=== PATIENT | male | born 1950 | race Caucasian/White ===

== ENCOUNTER 2018-10-08 18:08 | Inpatient (IN) ==
[2018-10-08] MEDS ORDERED: Naloxone 0.4 MG/ML INJ IVP PRN (21:58)
[2018-10-08] MEDS ORDERED: 0.9 % Sodium Chloride 1,000 ML IVC SCH (22:00)
[2018-10-08 22:37] LABS: Basophils # 0.1 K/mcL (0.0-0.2); Basophils % 0.4 %; Eosinophils # 0.5 K/mcL (0.0-0.6); Eosinophils % 2.1 %; Hemoglobin 10.5 g/dL (12.9-16.9); Immature Granulocytes % 0.5 % (0-4); Lymphocytes # 2.4 K/mcL (0.6-4.6); Lymphocytes % 9.9 %; Mean Corpuscular HGB Conc 30.9 g/dL (31.6-35.5); Mean Corpuscular Hemoglobin 29.4 pg (28.0-33.3); Mean Corpuscular Volume 95.2 fL (83.0-100.0); Monocytes # 1.4 K/mcL (0.0-1.3); Neutrophils # 19.3 K/mcL (1.6-8.9); Platelet Count 297 K/mcL (140-400); Red Blood Count 3.57 M/mcL (4.19-5.50); Red Cell Distribution Width 13.2 % (11.5-14.5); Segmented Neutrophils % 81.1 %
[2018-10-08 22:44] LABS: INR 1.1; Prothrombin Time 12.3 Seconds (9.4-12.1)
[2018-10-08 22:47] LABS: Activated Partial Thrombo Time 32.9 Seconds (26.0-36.0)
[2018-10-08 22:55] LABS: ABG Base Excess 3 mEq/L (-2 to 3); ABG HCO3 28 mEq/L (21-27); ABG Oxygen Saturation 94 % (95-98); ABG PCO2 46 mmHg (35-45); ABG PO2 73 mmHg (85-104); ABG TCO2 30 mEq/L (20-26)
[2018-10-08 22:59] LABS: Alanine Aminotransferase 9 Units/L (7-52); Albumin 3.4 g/dL (3.5-5.7); Albumin/Globulin Ratio 0.8 (1.1-2.2); Alkaline Phosphatase 111 Units/L (34-104); Aspartate Amino Transferase 11 Units/L (13-39); BUN/Creatinine Ratio 44 (6-26); Bilirubin,Total 0.5 mg/dL (0.3-1.0); Blood Urea Nitrogen 57 mg/dL (8-23); Carbon Dioxide 26 mEq/L (23-29); Chloride 110 mEq/L (98-107); Globulin 4.1 g/dL (2.4-3.5); Glucose 217 mg/dL (70-105); Magnesium 2.3 mg/dL (1.6-2.6); Osmolality,Calculated 324 (280-300); Sodium 146 mEq/L (136-145); Total Protein 7.5 g/dL (6.4-8.9); Troponin I 0.03 ng/mL (< 0.04); eGFR For Non-African Americans 55 (> 60)
[2018-10-08] MEDS: *HR* Heparin 5,000 UNIT/ML VIAL SQ SCH (23:03)
--- NOTE | 2018-10-09 05:54 | Internal Med History&Physical ---
Date of Encounter: 10/09/18 Time of Encounter: 05:43 Internal Medicine - H&P: HPI Chief complaint: AMS History of present illness: Mr. Saucedo is a 68 year old male with a past medical history of diabetes, hypertension, GERD, TIA, coronary artery disease status post [place], PVD who initially presented to [facility] with a chief complaint of weakness. Patient is a jail resident and per nursing report patient was sent to the ED due to weakness and hyperglycemia. Workup suggested UTI with significant leukocytosis of 21 as the underlying etiology. Patient had a blood glucose of 300. No evidence of DKA/HHS. CT of the head was unremarkable. CT scan of the abdomen and pelvis was performed which showed moderate bilateral hydronephrosis and hydroureter with a moderately distended bladder concerning for bladder outlet obstruction. Patient was given fluids and a one-time dose of Zosyn and transferred here. On my assessment patient was lethargic, arousable only to sternal rub. Patient was otherwise afebrile and hemodynamically stable saturating well on room air. Review of labs at [facility] showed initial white count was 21.6 with a hemoglobin/hematocrit of 12.4 and 40.6 respectively. Creatinine of 1.68. Unclear if patient has any underlying CKD. UA was positive for leukocyte esterase, negative nitrites and more than 100 leukocytes per high-powered field. ABG obtained showed a pH of 7.35, PCO2 62, PO2 26 and bicarbonate 34.2. repeat ABG here was normal. Patient is DNR [facility] Past Med Surg Social Fam HX - Social History Smoking Status: Unknown if ever smoked - Additional Family History Additional family history: Noncontributory Internal Medicine - H&P: Meds Ascorbic Acid [Vitamin C with Leana Hips] 1,000 [place] [address]10/09/18 [History] Aspirin [Lo-Dose Aspirin EC] 81 mg PO 199910/09/18 [History] Clopidogrel [Plavix] 75 [place] 82910/09/18 [History] Doxycycline Hyclate 100 mg PO 829,162910/09/18 [History] Duloxetine HCl [Cymbalta] 60 mg PO 82910/09/18 [History] Ferrous Sulfate [Iron] 325 mg PO 162910/09/18 [History] Glimepiride [Amaryl] 2 mg PO 82910/09/18 [History] GuaiFENesin Liq [Robitussin Liq] 200 mg PO Q4H PRN 10/09/18 [History] HYDROcodone/Acet 5/325 mg [[place] 5-325 mg] 1 tab PO Q6H PRN 10/09/18 [History] Insulin ASPART [NovoLOG] 0 - 8 ml SQ TIDAC MDD SLIDING SCALE 10/09/18 [History] Metoprolol [Lopressor] 12.5 mg PO 08,199910/09/18 [History] Multivitamin with Minerals [One-A-Day Maximum Formula] 1 tab PO 0830 10/09/18 [History] Polyethylene Glycol 3350 [MiraLAX] 17 gm PO 0810/09/18 [History] Pregabalin [Lyrica] 150 mg PO 0830,1629,199910/09/18 [History] Sertraline [Zoloft] 50 [place] [address]310/09/18 [History] Tizanidine HCl 2 mg PO Q12H PRN 10/09/18 [History] Trazodone HCl 25 mg PO HS 10/09/18 [History] Zinc Acetate [Galzin] 50 [place] 16310/09/18 [History] cloNIDine HCl [CloNIDine HCl] 0.1 mg PO DAILY PRN 10/09/18 [History] Allergy/AdvReac Type Severity Reaction Status Date / Time hydrochlorothiazide Allergy See Verified 10/09/18 12:04 Comments acetaminophen [From Percocet] AdvReac Unknown Verified 10/09/18 00:41 oxycodone [From Percocet] AdvReac Unknown Verified 10/09/18 00:41 All Systems PM: A 10-system review of systems was performed and is negative for pertinent f indings except as documented above in the HPI. - Constitutional Constitutional: no chills, no fever(s), no night sweats - EENT Eyes: no change in vision, no discharge, no pain, no photophobia Ears: no ear discharge, no ear pain, no tinnitus Nose, mouth and throat: no dysphagia, no nasal discharge, no neck pain, no sore throat - Cardiovascular Cardiovascular ROS IM: no chest pain, no diaphoresis, no dyspnea, no lightheadedness, no palpitations, no syncope - Respiratory Respiratory: no cough, no dyspnea, no wheezing, no excessive phlegm production - Gastrointestinal Gastrointestinal: no abdominal pain, no diarrhea, no hematemesis, no hematochezia, no melena, no nausea, no vomiting - Musculoskeletal Musculoskeletal ROS IM: no numbness, no tingling - Integumentary Integumentary IM: no rash, no unusual bruising - Neurological Neurological ROS: no confusion, no convulsions, no focal weakness, no numbness, no tingling, no tremor(s) - Hematologic/Lymphatic Hematologic/Lymphatic: no easy bruising - Constitutional Vitals: Temp Pulse Resp BP Pulse Ox 98.9 F 80 15 146/75 99 10/09/18 00:25 10/09/18 00:25 10/09/18 00:25 10/09/18 00:25 10/09/18 00:25 Exam: General: Alert and oriented 1 Skin:Normal color, no rash, no lesions. HEENT:EOM, pupils equal, round and reactive. Cardiovascular:Normal S1 & S2, no rubs, murmurs or gallops. No JVD. Pulse regular. Lungs:Normal breath sounds, no wheezes or crackles. Abdomen:Soft, non-tender, no rigidity. Suprapubic tenderness Extremities:No deformity, no edema or tenderness, no joint swelling or clubbing. Neurological:Normal cognition and motor skills. Pulses:Carotid and radial pulses normal +2. Rest of the physical exam is non contributory Internal Med - H&P Results - Labs CBC & Chem 7: 10/09/18 09:38 10/09/18 09:38 Labs: Short CBC 10/08/18 Range/Units 22:20 WBC 23.8 H (4.3-11.1) K/mcL Hgb 10.5 L (12.9-16.9) g/dL Hct 34.0 L (37.5-50.1) % Plt Count 297 (140-400) K/mcL Neutrophils # 19.3 H (1.6-8.9) K/mcL BMP 10/08/18 22:20 Sodium 146 H Potassium 4.0 Chloride 110 H Carbon Dioxide 26 BUN 57 H Creatinine 1.29 Glucose 217 H Calcium 11.0 H Cardiac Enzymes 10/08/18 Range/Units 22:20 Troponin I 0.03 (< 0.04) ng/mL Liver Function 10/08/18 Range/Units 22:20 Total Bilirubin 0.5 (0.3-1.0) mg/dL AST 11 L (13-39) Units/L ALT 9 (7-52) Units/L Alkaline Phosphatase 111 H (34-104) Units/L Albumin 3.4 L (3.5-5.7) g/dL - ABG Interpretation ABG results: 10/08/18 22:51 ABG pH 7.40 ABG pCO2 46 H ABG pO2 73 L ABG HCO3 28 H ABG Total CO2 30 H ABG O2 Saturation 94 L ABG Base Excess 3 - Assessment and Plan (1) Acute encephalopathy Current Visit: Yes Status: Acute Assessment and plan: Patient presents with acute encephalopathy. Patient is a poor historian and and his baseline is unclear as no family members were present during my assessment. Suspect likely secondary to urinary tract infection given his elevated leukocytosis and urine with large leukocyte esterase and numerous WBCs. ABG was obtained which appeared to be normal. Patient does appear to have some degree of bladder outlet obstruction and CT of the abdomen and pelvis demonstrated moderate bilateral hydronephrosis and hydroureter as well as a moderately distended bladder. Fecal impaction was also noted. Patient received fluids and was given one-time dose of Zosyn at [facility] prior to transfer. Continue with antibiotics. (2) Complicated UTI (urinary tract infection) Current Visit: Yes Status: Acute Assessment and plan: Patient presenting with complicated UTI in the setting of what appears to be some degree of bladder outlet obstruction and altered mentation with a significant leukocytosis. Patient did have suprapubic tenderness to palpation on abdominal examination. -Blood and urine cultures were obtained -We will continue with antibiotics with ceftriaxone (3) Bilateral hydronephrosis Current Visit: Yes Status: Acute Assessment and plan: CT of the abdomen and pelvis showed moderate bilateral hydronephrosis and hydroureter with a distended gallbladder suggestive of bladder outlet obstr uction. -Consider urology consult (4) Type 2 diabetes mellitus Current Visit: Yes Status: Acute Assessment and plan: History of type 2 diabetes. Patient was hyperglycemic. We will start patient on fighting scale insulin with blood glucose checks. Qualifiers: Proliferative retinopathy type: unspecified Diabetes mellitus macular edema: macular edema presence unspecified Laterality: unspecified laterality Qualified Code(s): E11.3599 - Type 2 diabetes mellitus with proliferative diabetic retinopathy without macular edema, unspecified eye; Z79.4 - terminal carman (current) use of insulin (5) Coronary artery disease Current Visit: Yes Status: Acute Assessment and plan: Reported history of coronary artery disease status post [place]. Once patient's medications are verified we will continue medical management. Qualifiers: Associated angina: angina presence unspecified Qualified Code(s): I25.10 - Atherosclerotic heart disease of [place] coronary artery without angina pectoris (6) DVT prophylaxis Current Visit: Yes Status: Acute Assessment and plan: Subcutaneous heparin - Time Spent With Patient Total time spent is greater than 50% in coordination of care (as documented) at patient's floor/unit and/or counseling patient:
[2018-10-09] MEDS: cefTRIAXone 1,000 MG in Water for inj. (sterile) 20 ML 10 ML IVPB SCH (06:14)
[2018-10-09] MEDS ORDERED: Dextrose Gel 15 GM/37.5 ML TUBE PO PRN ×2 (06:18)
[2018-10-09] MEDS ORDERED: *HR* Dextrose 50 % in Water (Syg) 50 ML SYRINGE IVP PRN (06:18)
[2018-10-09] MEDS ORDERED: D5% in Water 1,000 ML IVC PRN (06:18)
[2018-10-09 07:02] LABS: Bilirubin,Urine Negative (Negative); Blood,Urine Moderate (Negative); Clarity,Urine Turbid (Clear); Color,Urine Yellow (Yellow); Glucose,Urine (UA) 100 mg/dL (Normal); Ketones,Urine Negative (Negative); Leukocyte Esterase,Urine Large (Negative); Nitrite,Urine Negative (Negative); PH,Urine 5.5 pH Units (5.0-8.0); Protein,Urine 30 mg/dL (Neg-Trace); Specific Gravity,Urine 1.009 (1.010-1.025); Urobilinogen,Urine Normal (Normal)
[2018-10-09 07:04] LABS: Bacteria,Urine Many per hpf (None-Few); Hyaline Casts,Urine None Seen per lpf (None-Few); Squamous Epithelial Cell,Urine Few per lpf (None-Few); WBC,Urine TNTC per hpf (0-3)
[2018-10-09] MEDS: Insulin LISPRO 300 UNITS/3 ML VIAL SQ SCH ×3 (08:28→16:58)
[2018-10-09] MEDS: Insulin DETEMIR 100 UNIT/ML X5UNITS SQ SCH ×2 (08:29→20:36)
[2018-10-09] MEDS: *HR* Heparin 5,000 UNIT/ML VIAL SQ SCH ×2 (08:29→14:22)
[2018-10-09 09:55] LABS: Basophils # 0.1 K/mcL (0.0-0.2); Basophils % 0.8 %; Eosinophils # 0.5 K/mcL (0.0-0.6); Eosinophils % 2.8 %; Hematocrit 36.7 % (37.5-50.1); Hemoglobin 11.2 g/dL (12.9-16.9); Immature Granulocytes % 0.5 % (0-4); Lymphocytes # 1.9 K/mcL (0.6-4.6); Lymphocytes % 11.3 %; Mean Corpuscular HGB Conc 30.5 g/dL (31.6-35.5); Mean Corpuscular Hemoglobin 29.5 pg (28.0-33.3); Mean Corpuscular Volume 96.6 fL (83.0-100.0); Monocytes # 0.8 K/mcL (0.0-1.3); Monocytes % 4.9 %; Neutrophils # 13.6 K/mcL (1.6-8.9); Platelet Count 277 K/mcL (140-400); Red Cell Distribution Width 13.3 % (11.5-14.5); Segmented Neutrophils % 79.7 %
[2018-10-09 11:42] LABS: BUN/Creatinine Ratio 40 (6-26); Blood Urea Nitrogen 51 mg/dL (8-23); Calcium 11.4 mg/dL (8.6-10.3); Carbon Dioxide 18 mEq/L (23-29); Chloride 109 mEq/L (98-107); Glucose 232 mg/dL (70-105); Osmolality,Calculated 319 (280-300); Potassium 3.9 mEq/L (3.5-5.1); Sodium 144 mEq/L (136-145); eGFR For Non-African Americans 56 (> 60)
[2018-10-09 12:32] LABS: Folate > 22.3 ng/mL (3.0-16.0); Vitamin B12 837 pg/mL (250-1100)
--- NOTE | 2018-10-09 12:44 | Urology - Consult Note ---
Date of Encounter: 10/09/18 Time of Encounter: 12:42 - Assessment and Plan (1) Bilateral hydronephrosis Current Visit: Yes Status: Acute Assessment and plan: CT shows overly distended bladder with moderate bilateral hydronephrosis consistent with long-standing high-grade bladder outlet obstruction. Patient with mild acute kidney injury and GFR of 55. Anticipate resolution of hydronephrosis and potentially acute kidney injury with placement of Rick catheter. Nursing staff unable to place Rick despite multiple attempts and use of specialized catheter/daily. Plan: Difficult Rick placed at bedside with 16- Wallisian coude. Leave Rick indwelling. Maximize BPH meds with tamsulosin and finasteride. Outpatient cystoscopy with trial of void in 4 weeks. (2) Acute kidney injury Current Visit: Yes Status: Acute Assessment and plan: Mild decrease in GFR to 55. Suspect this is related to his bladder outlet obstruction with bilateral hydronephrosis. Plan: Monitor renal functions post Rick placement. (3) Urinary retention Current Visit: Yes Status: Acute Assessment and plan: Suspect BPH a source. Rule out malignancy with prostate cancer screening. Ease of catheter placement does not suggest urethral stricture disease. Plan: Maximize BPH meds with finasteride and tamsulosin. My office will arrange for Outpatient cystoscopy with trial of void in 4 weeks. Discharge to home/SNF with indwelling Rick. (4) Constipation Current Visit: Yes Status: Acute Assessment and plan: Likely determining factor to urinary retention. Plan: Address of constipation/fecal impaction noted on CT by primary service. Qualifiers: Constipation type: unspecified constipation type Qualified Code(s): K59.00 - Constipation, unspecified (5) Complicated UTI (urinary tract infection) Current Visit: Yes Status: Acute Assessment and plan: Comment located UTI due to bladder outlet obstruction and bilateral hydronephrosis with urinary stasis. Plan: Indwelling Rick catheter until seen in my office or trauma void in 4 weeks. Culture specific antibiotic therapy as per primary service. (6) Anticoagulation adequate Current Visit: Yes Status: Acute Assessment and plan: Clopidogrel complaints current Rick placement, management and future urologic interventions. Urology CN:BOAZ Consult date: 10/09/18 Requesting physician: Fabrizio Guzman History of present illness: Mr. Saucedo is a 68 year old male with a past medical history of diabetes, hypertension, GERD, TIA, coronary artery disease status post [place], PVD who initially presented to [facility] with a chief complaint of weakness. Patient is a care home resident and per nursing report patient was sent to the ED due to weakness and hyperglycemia. Workup suggested UTI with significant leukocytosis of 21 as the underlying etiology. Patient had a blood glucose of 300. No evidence of DKA/HHS. CT of the head was unremarkable. CT scan of the abdomen and pelvis was performed which showed moderate bilateral hydronephrosis and hydroureter with a moderately distended bladder concerning for bladder outlet obstruction. Patient was given fluids and a one-time dose of Zosyn and transferred here. On my assessment patient was lethargic, arousable only to sternal rub. Patient was otherwise afebrile and hemodynamically stable saturating well on room air. Review of labs at [facility] showed initial white count was 21.6 with a hemoglobin/hematocrit of 12.4 and 40.6 respectively. Creatinine of 1.68. Unclear if patient has any underlying CKD. UA was positive for leukocyte esterase, negative nitrites and more than 100 leukocytes per high-powered field. ABG obtained showed a pH of 7.35, PCO2 62, PO2 26 and bicarbonate 34.2. repeat ABG here was normal. Patient is DNR [facility] We are asked to see patient bilateral [place], urinary retention, renal insufficiency and UTI Past Med Surg Social Fam HX - Past Surgical History Surgical History: non-contributory - Social History Smoking Status: Unknown if ever smoked - Additional Family History Additional family history: Patient not aware Medications and Allergies Ascorbic Acid [Vitamin C with Leana Hips] 1,000 [place] 82910/09/18 [History] Aspirin [Lo-Dose Aspirin EC] 81 mg PO 199910/09/18 [History] Clopidogrel [Plavix] 75 mg PO 82910/09/18 [History] Doxycycline Hyclate 100 mg PO 829,162910/09/18 [History] Duloxetine HCl [Cymbalta] 60 mg PO 82910/09/18 [History] Ferrous Sulfate [Iron] 325 mg PO 162910/09/18 [History] Glimepiride [Amaryl] 2 mg PO 82910/09/18 [History] GuaiFENesin Liq [Robitussin Liq] 200 mg PO Q4H PRN 10/09/18 [History] HYDROcodone/Acet 5/325 mg [[place] 5-325 mg] 1 tab PO Q6H PRN 10/09/18 [History] Insulin ASPART [NovoLOG] 0 - 8 ml SQ TIDAC MDD SLIDING SCALE 10/09/18 [History] Metoprolol [Lopressor] 12.5 mg PO 0830,199910/09/18 [History] Multivitamin with Minerals [One-A-Day Maximum Formula] 1 tab PO 0830 10/09/18 [History] Polyethylene Glycol 3350 [MiraLAX] 17 gm PO 0830 10/09/18 [History] Pregabalin [Lyrica] 150 mg PO 0830,163,199910/09/18 [History] Sertraline [Zoloft] 50 mg PO 162910/09/18 [History] Tizanidine HCl 2 mg PO Q12H PRN 10/09/18 [History] Trazodone HCl 25 mg PO HS 10/09/18 [History] Zinc Acetate [Galzin] 50 mg PO 162910/09/18 [History] cloNIDine HCl [CloNIDine HCl] 0.1 mg PO DAILY PRN 10/09/18 [History] Allergy/AdvReac Type Severity Reaction Status Date / Time hydrochlorothiazide Allergy See Verified 10/09/18 12:04 Comments acetaminophen [From Percocet] AdvReac Unknown Verified 10/09/18 00:41 oxycodone [From Percocet] AdvReac Unknown Verified 10/09/18 00:41 Review of Systems ROS unobtainable: due to mental status Exam Initial Vital Signs Temp Pulse Resp BP Pulse Ox 97.5 F L 84 16 153/80 100 10/08/18 21:15 10/08/18 21:15 10/08/18 21:15 10/08/18 21:15 10/08/18 21:15 - General physical appearance Present: no distress, cachectic - Eyes Present: normal ocular movement. Absent: icteric - ENT Present: normal nares, normal mucosa - Neck Present: trachea midline - Respiratory Present: normal respiratory effort - Abdomen Abdomen: Present: non tender, distended - Genitourinary Penis: Present: edema - Integumentary Present: no growths - Neurologic Present: confused - Musculoskeletal Present: other (Moves external these bilaterally) Urology Results - Labs 10/09/18 09:38 10/09/18 09:38 Abnormal lab results WBC 17.1 K/mcL (4.3-11.1) H 10/09/18 09:38 RBC 3.80 M/mcL (4.19-5.50) L 10/09/18 09:38 Hgb 11.2 g/dL (12.9-16.9) L 10/09/18 09:38 Hct 36.7 % (37.5-50.1) L 10/09/18 09:38 MCHC 30.5 g/dL (31.6-35.5) L 10/09/18 09:38 13.6 K/mcL (1.6-8.9) H 10/09/18 09:38 1.4 K/mcL (0.0-1.3) H 10/08/18 22:20 PT 12.3 Seconds (9.4-12.1) H 10/08/18 22:20 ABG pCO2 46 mmHg (35-45) H 10/08/18 22:51 ABG pO2 73 mmHg (85-104) L 10/08/18 22:51 ABG HCO3 28 mEq/L (21-27) H 10/08/18 22:51 ABG Total CO2 30 mEq/L (20-26) H 10/08/18 22:51 ABG O2 Saturation 94 % (95-98) L 10/08/18 22:51 Sodium 146 mEq/L (136-145) H 10/08/18 22:20 Chloride 109 mEq/L (98-107) H 10/09/18 09:38 Carbon Dioxide 18 mEq/L (23-29) L 10/09/18 09:38 BUN 51 mg/dL (8-23) H 10/09/18 09:38 Est GFR (Non-Af Amer) 56 (> 60) L 10/09/18 09:38 40 (6-26) H 10/09/18 09:38 Glucose 232 mg/dL (70-105) H 10/09/18 09:38 POC Glucose 172 mg/dL (70-99) H 10/09/18 12:08 319 (280-300) H 10/09/18 09:38 Calcium 11.4 mg/dL (8.6-10.3) H 10/09/18 09:38 AST 11 Units/L (13-39) L 10/08/18 22:20 111 Units/L (34-104) H 10/08/18 22:20 3.4 g/dL (3.5-5.7) L 10/08/18 22:20 4.1 g/dL (2.4-3.5) H 10/08/18 22:20 0.8 (1.1-2.2) L 10/08/18 22:20 > 22.3 ng/mL (3.0-16.0) H 10/09/18 09:38 Turbid (Clear) A 10/09/18 06:40 Ur Specific [place] 1.009 (1.010-1.025) L 10/09/18 06:40 30 mg/dL (Neg-Trace) H 10/09/18 06:40 100 mg/dL (Normal) H 10/09/18 06:40 Moderate (Negative) H 10/09/18 06:40 Ur Leukocyte Esterase Large (Negative) H 10/09/18 06:40 3-5 per hpf (0-3) H 10/09/18 06:40 TNTC per hpf (0-3) H 10/09/18 06:40 Many per hpf (None-Few) H 10/09/18 06:40 Ur Culture Indicated? YES (NO) A 10/09/18 06:40 Diabetes panel 10/08/18 10/09/18 Range/Units 22:20 09:38 Sodium 146 H 144 (136-145) mEq/L Potassium 4.0 3.9 (3.5-5.1) mEq/L Chloride 110 H 109 H (98-107) mEq/L Carbon Dioxide 26 18 L (23-29) mEq/L BUN 57 H 51 H (8-23) mg/dL Creatinine 1.29 1.27 (0.70-1.30) mg/dL Glucose 217 H 232 H (70-105) mg/dL Calcium 11.0 H 11.4 H (8.6-10.3) mg/dL AST 11 L (13-39) Units/L ALT 9 (7-52) Units/L Alkaline Phosphatase 111 H (34-104) Units/L Albumin 3.4 L (3.5-5.7) g/dL Thyroid panel 10/09/18 Range/Units 09:38 TSH 1.331 (0.340-5.600) mcIU/mL Calcium panel 10/08/18 10/09/18 Range/Units 22:20 09:38 Calcium 11.0 H 11.4 H (8.6-10.3) mg/dL Phosphorus 3.0 (2.7-4.5) mg/dL Albumin 3.4 L (3.5-5.7) g/dL Pituitary panel 10/08/18 10/09/18 10/09/18 Range/Units 22:20 09:38 09:38 Sodium 146 H 144 (136-145) mEq/L Potassium 4.0 3.9 (3.5-5.1) mEq/L Chloride 110 H 109 H (98-107) mEq/L Carbon Dioxide 26 18 L (23-29) mEq/L BUN 57 H 51 H (8-23) mg/dL Creatinine 1.29 1.27 (0.70-1.30) mg/dL Glucose 217 H 232 H (70-105) mg/dL Calcium 11.0 H 11.4 H (8.6-10.3) mg/dL TSH 1.331 (0.340-5.600) mcIU/mL Adrenal panel 10/08/18 10/09/18 Range/Units 22:20 09:38 Sodium 146 H 144 (136-145) mEq/L Potassium 4.0 3.9 (3.5-5.1) mEq/L Chloride 110 H 109 H (98-107) mEq/L Carbon Dioxide 26 18 L (23-29) mEq/L BUN 57 H 51 H (8-23) mg/dL Creatinine 1.29 1.27 (0.70-1.30) mg/dL Glucose 217 H 232 H (70-105) mg/dL Calcium 11.0 H 11.4 H (8.6-10.3) mg/dL Total Bilirubin 0.5 (0.3-1.0) mg/dL AST 11 L (13-39) Units/L ALT 9 (7-52) Units/L Alkaline Phosphatase 111 H (34-104) Units/L Albumin 3.4 L (3.5-5.7) g/dL All other labs normal. - Imaging CT scan - abdomen: image reviewed CT scan - pelvis: image reviewed (CT images reviewed and interpreted independently.) Procedures:Urology - Catheter Insertion (Urinary) Bladder Scan/Ultrasound used before catheterization: No Estimated amount of urin (mLs): 1,000 Preparation: Povidone-Iodine, Urojet Type of catheter inserted: 2 way, coude tip Catheter Wallisian Size: 16 Results: successfully catheterized-immediate flow Urine Appearance: Sediment Patient tolerated procedure: no complications Complications: none Consult Discharge Plan - Plan Referrals: Cony Cornelius DO [Primary Care Provider] -
--- NOTE | 2018-10-09 13:51 | Internal Med Progress Note ---
<Jared Cagle - Last Filed: 10/09/18 13:59> Hospitalist Progress Note - Encounter Date of Encounter: 10/09/18 Time of Encounter: 08:15 - Subjective Interval History: Patient seen and examined at bedside; reports that he is feeling fine today. He is alert and oriented x 3 on exam. He reports no urine output this morning. Urology consulted for possible bladder outlet obstruction. No further complaints at this time. - Exam Vitals: Temp Pulse Resp BP Pulse Ox 97.4 F L 77 14 193/89 99 10/09/18 11:59 10/09/18 11:59 10/09/18 11:59 10/09/18 11:59 10/09/18 11:59 Exam: General: A&O X3, conversant, no acute distress; thin Head: atraumatic, normocephalic; mucous membranes dry Eye: PERRL, EOMI, conjuntiva pink, sclera anicteric Neck: Supple, trachea midline; No lymphadenopathy Respiratory: CTAB. No accessory muscle use, wheezes, rales, or rhonchi Cardiovascular: RRR, +S1/+S2; no murmurs, rubs, gallops Abdomen: Soft, nontender; no suprapubic tenderness present Extremities: warm, radial pulses palpable and symmetrical; Mild pain in the right hip Neurological: CN II-XII intact Psychiatric: Normal affect, normal mood Skin: Dry, intact - Assessment and Plan (1) Complicated UTI (urinary tract infection) Current Visit: Yes Status: Acute Assessment and Plan: - Initially presented with altered mental status, leukocytosis at 23.8, and urinalysis suggestive of UTI - Urine culture is ordered and is currently pending - CT scan of the abdomen and pelvis demonstrated bilateral hydronephrosis and moderately distended bladder; possible bladder outlet obstruction - Was given 1 dose of Zosyn at [facility]; was started on Rocephin after transferred to [facility] - Patients white count has decreased to 17.1 - Patient denies abdominal or suprapubic pain on physical exam Plan: - Continue Rocephin - Blood and urine cultures are pending; will tailor anti-biotic therapy appropriately - Urology consulted for possible bladder outlet obstruction (2) Bladder outlet obstruction Current Visit: Yes Status: Acute Assessment and Plan: - CT scan of the abdomen and pelvis demonstrated moderate bilateral hydronephrosis and hydroureter and distended bladder suggestive of bladder outlet obstruction - This morning, patient reported no urinary output - Bladder scan was ordered; demonstrated 750 mL of urine present in the bladder - Attempted to place Rick catheter; was unsuccessful - Urology was consulted; difficult Rick was placed at bedside with 16-[place] Citizen coude - Per urology recommendations: Leave Rick indwelling, maximize BPH medications with tamsulosin and finasteride; outpatient cystoscopy with trial of void in 4 weeks (3) Acute encephalopathy Current Visit: Yes Status: Acute Assessment and Plan: - Resolved; Initially presented with altered mental status and weakness - Found to have UTI and DOM[place]A - This morning, patient is alert and oriented x3 - He does not remember the events leading up to hospitalization (4) Type 2 diabetes mellitus Current Visit: Yes Status: Acute Assessment and Plan: - SSI (5) Coronary artery disease Current Visit: Yes Status: Acute Assessment and Plan: - Home ASA and Plavix - Time Spent with Patient Total time spent is greater than 50% in coordination of care (as documented) at patient's floor/unit and/or counseling patient: Internal Medicine: Result - Labs CBC & Chem 7: 10/09/18 09:38 10/09/18 09:38 Labs: Short CBC 10/08/18 10/09/18 Range/Units 22:20 09:38 WBC 23.8 H 17.1 H (4.3-11.1) K/mcL Hgb 10.5 L 11.2 L (12.9-16.9) g/dL Hct 34.0 L 36.7 L (37.5-50.1) % Plt Count 297 277 (140-400) K/mcL Neutrophils # 19.3 H 13.6 H (1.6-8.9) K/mcL BMP 10/08/18 10/09/18 22:20 09:38 Sodium 146 H 144 Potassium 4.0 3.9 Chloride 110 H 109 H Carbon Dioxide 26 18 L BUN 57 H 51 H Creatinine 1.29 1.27 Glucose 217 H 232 H Calcium 11.0 H 11.4 H Cardiac Enzymes 10/08/18 Range/Units 22:20 Troponin I 0.03 (< 0.04) ng/mL Liver Function 10/08/18 Range/Units 22:20 Total Bilirubin 0.5 (0.3-1.0) mg/dL AST 11 L (13-39) Units/L ALT 9 (7-52) Units/L Alkaline Phosphatase 111 H (34-104) Units/L Albumin 3.4 L (3.5-5.7) g/dL Urine 10/09/18 Range/Units 06:40 Urine Color Yellow (Yellow) Urine Clarity Turbid A (Clear) Urine pH 5.5 (5.0-8.0) pH Units Ur Specific [place] 1.009 L (1.010-1.025) Urine Protein 30 H (Neg-Trace) mg/dL Urine Glucose (UA) 100 H (Normal) mg/dL - ABG Interpretation ABG results: ABG ABG pH 7.40 pH Units (7.32-7.45) 10/08/18 22:51 ABG pCO2 46 mmHg (35-45) H 10/08/18 22:51 ABG pO2 73 mmHg (85-104) L 10/08/18 22:51 ABG O2 Saturation 94 % (95-98) L 10/08/18 22:51 PT/INR, D-dimer PT 12.3 Seconds (9.4-12.1) H 10/08/18 22:20 Consult Discharge Plan - Plan Referrals: Cony Cornelius DO [Primary Care Provider] - <Betzaida Myers - Last Filed: 10/09/18 15:26> Hospitalist Progress Note - Encounter Date of Encounter: 10/09/18 - Exam Vitals: Temp Pulse Resp BP Pulse Ox 97.4 F L 77 14 165/68 99 10/09/18 11:59 10/09/18 11:59 10/09/18 11:59 10/09/18 13:30 10/09/18 11:59 - Assessment and Plan (1) Acute encephalopathy Current Visit: Yes Status: Acute (2) Complicated UTI (urinary tract infection) Current Visit: Yes Status: Acute (3) Bilateral hydronephrosis Current Visit: Yes Status: Acute (4) DVT prophylaxis Current Visit: Yes Status: Acute (5) Type 2 diabetes mellitus Current Visit: Yes Status: Acute (6) Coronary artery disease Current Visit: Yes Status: Acute - Time Spent with Patient Total time spent is greater than 50% in coordination of care (as documented) at patient's floor/unit and/or counseling patient: Internal Medicine: Result - Labs CBC & Chem 7: 10/09/18 09:38 10/09/18 09:38 Labs: Short CBC 10/08/18 10/09/18 Range/Units 22:20 09:38 WBC 23.8 H 17.1 H (4.3-11.1) K/mcL Hgb 10.5 L 11.2 L (12.9-16.9) g/dL Hct 34.0 L 36.7 L (37.5-50.1) % Plt Count 297 277 (140-400) K/mcL Neutrophils # 19.3 H 13.6 H (1.6-8.9) K/mcL BMP 10/08/18 10/09/18 22:20 09:38 Sodium 146 H 144 Potassium 4.0 3.9 Chloride 110 H 109 H Carbon Dioxide 26 18 L BUN 57 H 51 H Creatinine 1.29 1.27 Glucose 217 H 232 H Calcium 11.0 H 11.4 H Cardiac Enzymes 10/08/18 Range/Units 22:20 Troponin I 0.03 (< 0.04) ng/mL Liver Function 10/08/18 Range/Units 22:20 Total Bilirubin 0.5 (0.3-1.0) mg/dL AST 11 L (13-39) Units/L ALT 9 (7-52) Units/L Alkaline Phosphatase 111 H (34-104) Units/L Albumin 3.4 L (3.5-5.7) g/dL Urine 10/09/18 Range/Units 06:40 Urine Color Yellow (Yellow) Urine Clarity Turbid A (Clear) Urine pH 5.5 (5.0-8.0) pH Units Ur Specific [place] 1.009 L (1.010-1.025) Urine Protein 30 H (Neg-Trace) mg/dL Urine Glucose (UA) 100 H (Normal) mg/dL - ABG Interpretation ABG results: ABG ABG pH 7.40 pH Units (7.32-7.45) 10/08/18 22:51 ABG pCO2 46 mmHg (35-45) H 10/08/18 22:51 ABG pO2 73 mmHg (85-104) L 10/08/18 22:51 ABG O2 Saturation 94 % (95-98) L 10/08/18 22:51 PT/INR, D-dimer PT 12.3 Seconds (9.4-12.1) H 10/08/18 22:20 - Attending Attestation I examined this patient and my medical decision-making was reviewed with the Resident Physician. I agree with the documented findings, disposition and treatment plan as described except to the extent set forth below.
[2018-10-09] MEDS: Finasteride 5 MG TABLET PO SCH (14:21)
[2018-10-09] MEDS: *HR* HYDROcodone/Acet 5/325 mg TABLET PO PRN ×2 (14:22→20:41)
[2018-10-09 14:48] LABS: Amphetamine Screen,Urine Negative ng/mL (Cutoff=1000); Barbiturate Screen,Urine Negative ng/mL (Cutoff=200); Benzodiazepines Screen,Urine Negative ng/mL (Cutoff=200); Cannabinoid Screen,Urine Negative ng/mL (Cutoff = 50); Cocaine Screen,Urine Negative ng/mL (Cutoff= 300); Opiate Screen,Urine Negative ng/mL (Cutoff=300); Phencyclidine Screen,Urine Negative ng/mL (Cutoff=25)
[2018-10-09] MEDS: *HR* HYDROcodone/Acet 7.5/325 mg TABLET PO PRN (18:06)
[2018-10-09] MEDS: Aspirin Enteric Coated 81 MG Tablet PO SCH (20:36)
[2018-10-10] MEDS: *HR* Heparin 5,000 UNIT/ML VIAL SQ SCH ×4 (00:18→23:27)
[2018-10-10] MEDS: cefTRIAXone 1,000 MG in Water for inj. (sterile) 20 ML 10 ML IVPB SCH (05:00)
[2018-10-10] MEDS: *HR* HYDROcodone/Acet 7.5/325 mg TABLET PO PRN ×2 (05:00→23:27)
[2018-10-10 06:08] LABS: Basophils # 0.1 K/mcL (0.0-0.2); Basophils % 0.5 %; Eosinophils # 0.4 K/mcL (0.0-0.6); Eosinophils % 3.3 %; Hematocrit 33.7 % (37.5-50.1); Hemoglobin 10.5 g/dL (12.9-16.9); Immature Granulocytes % 0.5 % (0-4); Lymphocytes # 1.7 K/mcL (0.6-4.6); Lymphocytes % 12.6 %; Mean Corpuscular HGB Conc 31.2 g/dL (31.6-35.5); Mean Corpuscular Hemoglobin 29.5 pg (28.0-33.3); Mean Corpuscular Volume 94.7 fL (83.0-100.0); Monocytes # 0.8 K/mcL (0.0-1.3); Monocytes % 6.2 %; Neutrophils # 10.2 K/mcL (1.6-8.9); Platelet Count 233 K/mcL (140-400); Red Blood Count 3.56 M/mcL (4.19-5.50); Red Cell Distribution Width 13.1 % (11.5-14.5); Segmented Neutrophils % 76.9 %
[2018-10-10 06:27] LABS: BUN/Creatinine Ratio 39 (6-26); Blood Urea Nitrogen 39 mg/dL (8-23); Calcium 10.7 mg/dL (8.6-10.3); Carbon Dioxide 29 mEq/L (23-29); Chloride 110 mEq/L (98-107); Glucose 65 mg/dL (70-105); Osmolality,Calculated 308 (280-300); Potassium 3.3 mEq/L (3.5-5.1); Sodium 145 mEq/L (136-145); eGFR For Non-African Americans > 60 (> 60)
[2018-10-10] MEDS: Insulin LISPRO 300 UNITS/3 ML VIAL SQ SCH ×3 (07:50→17:24)
[2018-10-10] MEDS ORDERED: GuaiFENesin Liq 200 MG/10 ML UDC PO PRN (07:56)
[2018-10-10] MEDS ORDERED: cloNIDine HCl 0.1 MG TABLET PO PRN (07:56)
[2018-10-10] MEDS: Ascorbic Acid 500 MG TABLET PO SCH (09:53)
[2018-10-10] MEDS: Finasteride 5 MG TABLET PO SCH (09:53)
--- NOTE | 2018-10-10 12:51 | Discharge Summary ---
<Jared Cagle - Last Filed: 10/10/18 13:11> - NOTES TO OUTPATIENT PROVIDER Notes to Outpatient Provider: Patient will require outpatient follow-up with urology for an outpatient cystoscopy with trial of void in 4 weeks. Orders not resulted at time of discharge: Pending orders 10/08/18 22:19 Culture,Blood [BC] Stat 10/09/18 06:40 Culture,Urine [RM] Stat Date of Encounter: 10/10/18 Time of Encounter: 12:46 - Discharge Diagnosis (1) Complicated UTI (urinary tract infection) Priority: Primary Status: Acute (2) Bladder outlet obstruction Priority: Secondary Status: Acute (3) Acute encephalopathy Priority: Secondary Status: Acute (4) Type 2 diabetes mellitus Priority: Secondary Status: Acute Qualifiers: Proliferative retinopathy type: unspecified Diabetes mellitus macular edema: macular edema presence unspecified Laterality: unspecified laterality Qualified Code(s): 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 Saucedo is a 68 year old male with a PMH of diabetes, HTN, GERD, previous TIA, CAD status post [place], and peripheral vascular disease who presented to [facility] ED with the chief complaint of weakness. Initial workup at [facility] demonstrated leukocytosis at 21 and urinalysis demonstrated a UTI. He also had an elevated blood glucose of 300. He had no evidence of DKA or HHS. CT scan of the head was unremarkable. CT scan of the abdomen and pelvis demonstrated moderate bilateral hydronephrosis and hydroureter, with a moderately distended bladder. There was a concern for possible bladder outlet obstruction. At [facility], he was given a one-time dose of Zosyn and then was transferred to [facility] for further management. He was started on IV Rocephin for his UTI. On his first day in the hospital, patients mental status had improved. He was alert and oriented 3 on exam, but reported that he had not urinated that morning. A bladder scan was performed, which demonstrated 750 mL of urine in his bladder. A Buck catheter placement was attempted multiple times; after multiple unsuccessful attempts, urology was consulted. Difficult Buck was placed at bedside with 16-[place] coude. Urology further recommended maximizing BPH meds with tamsulosin and finasteride. Patient was seen and examined on date of discharge. He states that he is feeling well. He is alert and oriented 3, and has no complaints today. Buck catheter is in place. Per the recommendations of urology, patient is to follow- up in the outpatient setting with urology for outpatient cystoscopy with trial of void. He is on day 2 of Rocephin on date of discharge; will send him on 5 more days of Omnicef. He denies having suprapubic or abdominal pain. Also denies fever, chills, nausea, vomiting, confusion, dizziness, headache, lightheadedness, or visual disturbances. His white blood cell count has decreased from 23.8 to 13.2. Renal function has improved, and creatinine today is 0.99. He will be discharged back to his nursing facility. - Time Spent with Patient Total time spent providing and/or coordinating discharge services: - Discharge Medications Prescriptions: New Tamsulosin [Flomax] 0.4 mg PO DAILY #30 capsule Finasteride [Proscar] 5 mg PO DAILY #30 tablet Cefdinir [Omnicef] 300 mg PO BID #16 capsule Continued GuaiFENesin Liq [Robitussin Liq] 200 mg PO Q4H PRN PRN Reason: Cough HYDROcodone/Acet 5/325 mg [[place] 5-325 mg] 1 tab PO Q6H PRN PRN Reason: Pain cloNIDine HCl [CloNIDine HCl] 0.1 mg PO DAILY PRN PRN Reason: BP >140/90 Insulin ASPART [NovoLOG] 0 - 8 ml SQ TIDAC MDD SLIDING SCALE Pregabalin [Lyrica] 150 mg PO 0830,1630,2000 Metoprolol [Lopressor] 12.5 mg PO 0830,2000 Doxycycline Hyclate 100 mg PO 0830,1630 Sertraline [Zoloft] 50 mg PO 1630 Zinc Acetate [Galzin] 50 mg PO 1630 Trazodone HCl 25 mg PO HS Ascorbic Acid [Vitamin C with Leana Hips] 1,000 mg PO 0830 Polyethylene Glycol 3350 [MiraLAX] 17 gm PO 0830 Multivitamin with Minerals [One-A-Day Maximum Formula] 1 tab PO 0830 Glimepiride [Amaryl] 2 mg PO 0830 Ferrous Sulfate [Iron] 325 mg PO 1630 Duloxetine HCl [Cymbalta] 60 mg PO 0830 Clopidogrel [Plavix] 75 mg PO 0830 Aspirin [Lo-Dose Aspirin EC] 81 mg PO 1999 Tizanidine HCl 2 mg PO Q12H PRN PRN Reason: Muscle Spasm Home Medications: Ascorbic Acid [Vitamin C with Leana Hips] 1,000 mg PO 0830 10/09/18 [History] Aspirin [Lo-Dose Aspirin EC] 81 mg PO 199910/09/18 [History] Clopidogrel [Plavix] 75 mg PO 0830 10/09/18 [History] Doxycycline Hyclate 100 mg PO 0830,16310/09/18 [History] Duloxetine HCl [Cymbalta] 60 mg PO 0830 10/09/18 [History] Ferrous Sulfate [Iron] 325 mg PO 162910/09/18 [History] Glimepiride [Amaryl] 2 mg PO 0830 10/09/18 [History] GuaiFENesin Liq [Robitussin Liq] 200 mg PO Q4H PRN 10/09/18 [History] HYDROcodone/Acet 5/325 mg [[place] 5-325 mg] 1 tab PO Q6H PRN 10/09/18 [History] Insulin ASPART [NovoLOG] 0 - 8 ml SQ TIDAC MDD SLIDING SCALE 10/09/18 [History] Metoprolol [Lopressor] 12.5 mg PO 0830,199910/09/18 [History] Multivitamin with Minerals [One-A-Day Maximum Formula] 1 tab PO 0830 10/09/18 [History] Polyethylene Glycol 3350 [MiraLAX] 17 gm PO 0830 10/09/18 [History] Pregabalin [Lyrica] 150 mg PO 0830,1630,199910/09/18 [History] Sertraline [Zoloft] 50 mg PO 162910/09/18 [History] Tizanidine HCl 2 mg PO Q12H PRN 10/09/18 [History] Trazodone HCl 25 mg PO HS 10/09/18 [History] Zinc Acetate [Galzin] 50 mg PO 162910/09/18 [History] cloNIDine HCl [CloNIDine HCl] 0.1 mg PO DAILY PRN 10/09/18 [History] Cefdinir [Omnicef] 300 mg PO BID #16 capsule 10/10/18 [Rx] Finasteride [Proscar] 5 mg PO DAILY #30 tablet 10/10/18 [Rx] Tamsulosin [Flomax] 0.4 mg PO DAILY #30 capsule 10/10/18 [Rx] Allergies/Adverse Reactions: Allergy/AdvReac Type Severity Reaction Status Date / Time hydrochlorothiazide Allergy See Verified 10/09/18 12:04 Comments acetaminophen [From Percocet] AdvReac Unknown Verified 10/09/18 00:41 oxycodone [From Percocet] AdvReac Unknown Verified 10/09/18 00:41 Date of admission: 10/08/18 22:37 Primary care physician: Cony Cornelius DO Consults: 10/09/18 11:56 Consult to Urology [CONS] Routine Consulting Provider: Urology Gema Reason for Consult: buck placement Time Notified: 11:57 Call Completed: Yes Consult to Wound Care [CONS] Routine Reason for Consult: wound on leg/feet Time Notified: 11:57 Call Completed: Yes 10/09/18 20:58 Consult to Manufacturing Engineering Professor [CONS] Routine Reason for SW Consult: Discharge planning. Family wants patient to go to a different ECF/rehab. Discharging clinician: Jared Cagle Anticipated date of discharge: 10/10/18 - Constitutional Vitals: Temp Pulse Resp BP Pulse Ox 97.6 F 83 16 154/69 97 10/10/18 10:57 10/10/18 10:57 10/10/18 10:57 10/10/18 10:57 10/10/18 10:57 Exam: General: A&O X3, conversant, no acute distress; thin Head: atraumatic, normocephalic; mucous membranes dry Eye: PERRL, EOMI, conjuntiva pink, sclera anicteric Neck: Supple, trachea midline; No lymphadenopathy Respiratory: CTAB. No accessory muscle use, wheezes, rales, or rhonchi Cardiovascular: RRR, +S1/+S2; no murmurs, rubs, gallops Abdomen: Soft, nontender; no suprapubic tenderness present Extremities: warm, radial pulses palpable and symmetrical; Mild pain in the right hip Neurological: CN II-XII intact Psychiatric: Normal affect, normal mood Skin: Dry, intact - Patient Status Disposition: Transfer SNF Condition: Fair Overall status at discharge: patient is progressing back to baseline - Discharge Instructions Follow Up With: Cony Cornelius DO [Primary Care Provider] - - Diet and Activity Activity: increase activity as tolerated Diet: low salt diet <Betzaida Myers - Last Filed: 10/10/18 16:26> Orders not resulted at time of discharge: Pending orders 10/08/18 22:19 Culture,Blood [BC] Stat 10/09/18 06:40 Culture,Urine [RM] Stat Date of Encounter: 10/10/18 - Discharge Diagnosis (1) Acute encephalopathy Status: Acute (2) Complicated UTI (urinary tract infection) Status: Acute (3) Bilateral hydronephrosis Status: Acute (4) DVT prophylaxis Status: Acute (5) Type 2 diabetes mellitus Status: Acute Qualifiers: Proliferative retinopathy type: unspecified Diabetes mellitus macular edema: macular edema presence unspecified Laterality: unspecified laterality Qualified Code(s): E11.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 Saucedo is a 68 year old male - Time Spent with Patient Total time spent providing and/or coordinating discharge services: Date of admission: 10/08/18 22:37 Primary care physician: Cony Cornelius DO Consults: 10/09/18 11:56 Consult to Urology [CONS] Routine Consulting Provider: Urology Gema Reason for Consult: buck placement Time Notified: 11:57 Call Completed: Yes Consult to Wound Care [CONS] Routine Reason for Consult: wound on leg/feet Time Notified: 11:57 Call Completed: Yes 10/09/18 20:58 Consult to Manufacturing Engineering Professor [CONS] Routine Reason for SW Consult: Discharge planning. Family wants patient to go to a different ECF/rehab. - Constitutional Vitals: Temp Pulse Resp BP Pulse Ox 98.4 F 91 18 157/72 96 10/10/18 15:50 10/10/18 15:50 10/10/18 15:50 10/10/18 15:50 10/10/18 15:50 - Attending Attestation I examined this patient and my medical decision-making was reviewed with the Resident Physician. I agree with the documented findings, disposition and t reatment plan as described except to the extent set forth below.
--- NOTE | 2018-10-10 13:15 | Physician Discharge Referral ---
ExtendedCare Referral Info Provider in Charge after Transfer: PCP - Diagnosis (1) Complicated UTI (urinary tract infection) Priority: Primary Status: Acute (2) Bladder outlet obstruction Priority: Secondary Status: Acute (3) Acute encephalopathy Priority: Secondary Status: Acute (4) Type 2 diabetes mellitus Priority: Secondary Status: Acute (5) Coronary artery disease Priority: Secondary Status: Acute - Transfer Medications Prescriptions: Tamsulosin [Flomax] 0.4 mg PO DAILY #30 capsule Cefdinir [Omnicef] 300 mg PO BID #16 capsule Finasteride [Proscar] 5 mg PO DAILY #30 tablet Home Medications: Ascorbic Acid [Vitamin C with Leana Hips] 1,000 [place] [address]10/09/18 [History] Aspirin [Lo-Dose Aspirin EC] 81 mg PO 199910/09/18 [History] Clopidogrel [Plavix] [place] 82910/09/18 [History] Doxycycline Hyclate 100 mg PO 0830,162910/09/18 [History] Duloxetine HCl [Cymbalta] 60 mg PO 82910/09/18 [History] Ferrous Sulfate [Iron] 325 mg PO 162910/09/18 [History] Glimepiride [Amaryl] 2 mg PO 82910/09/18 [History] GuaiFENesin Liq [Robitussin Liq] 200 mg PO Q4H PRN 10/09/18 [History] HYDROcodone/Acet 5/325 mg [[place] 5-325 mg] 1 tab PO Q6H PRN 10/09/18 [History] Insulin ASPART [NovoLOG] 0 - 8 ml SQ TIDAC MDD SLIDING SCALE 10/09/18 [History] Metoprolol [Lopressor] 12.5 mg PO 08,199910/09/18 [History] Multivitamin with Minerals [One-A-Day Maximum Formula] 1 [place] [address]/09/18 [History] Polyethylene Glycol 3350 [MiraLAX] 17 [place] 82910/09/18 [History] Pregabalin [Lyrica] 150 mg PO 0830,163,199910/09/18 [History] Sertraline [Zoloft] 50 mg PO 162910/09/18 [History] Tizanidine HCl 2 mg PO Q12H PRN 10/09/18 [History] Trazodone HCl 25 mg PO HS 10/09/18 [History] Zinc Acetate [Galzin] 50 mg PO 1630 10/09/18 [History] cloNIDine HCl [CloNIDine HCl] 0.1 mg PO DAILY PRN 10/09/18 [History] Cefdinir [Omnicef] 300 mg PO BID #16 capsule 10/10/18 [Rx] Finasteride [Proscar] 5 mg PO DAILY #30 tablet 10/10/18 [Rx] Tamsulosin [Flomax] 0.4 mg PO DAILY #30 capsule 10/10/18 [Rx] Allergies/Adverse Reactions: Allergy/AdvReac Type Severity Reaction Status Date / Time hydrochlorothiazide Allergy See Verified 10/09/18 12:04 Comments acetaminophen [From Percocet] AdvReac Unknown Verified 10/09/18 00:41 oxycodone [From Percocet] AdvReac Unknown Verified 10/09/18 00:41 - Respiratory Orders Smoking Cessation: Smoking cessation has been advised. For more information, call the [place] Tobacco Quit Line at 1-378-GOSR-NOW. - Advance Directives Code Status: Full Code - Rehabiliation Orders Rehab Potential: Good - Diet Orders Cardiac CERTIFICATION: I certify that the transfer of the above named patient to an Extended Care Facility is necessary for the continuing treatment of the diagnosis listed. The above information is true and accurate reflection of patient's current condition. Confidential - Redisclosure prohibited without a patient's written consent.
[2018-10-10] MEDS ORDERED: ZINC ACETATE 50 MG PO SCH (16:30)
[2018-10-10] MEDS: *HR* HYDROcodone/Acet 5/325 mg TABLET PO PRN (17:24)
[2018-10-10] MEDS: Aspirin Enteric Coated 81 MG Tablet PO SCH (20:31)
[2018-10-10] MEDS: Insulin DETEMIR 100 UNIT/ML X5UNITS SQ SCH (20:34)
[2018-10-11 03:01] LABS: Basophils # 0.1 K/mcL (0.0-0.2); Basophils % 0.4 %; Eosinophils # 0.5 K/mcL (0.0-0.6); Eosinophils % 3.3 %; Hematocrit 33.4 % (37.5-50.1); Hemoglobin 10.4 g/dL (12.9-16.9); Immature Granulocytes % 0.4 % (0-4); Lymphocytes # 1.9 K/mcL (0.6-4.6); Mean Corpuscular HGB Conc 31.1 g/dL (31.6-35.5); Mean Corpuscular Hemoglobin 29.4 pg (28.0-33.3); Mean Corpuscular Volume 94.4 fL (83.0-100.0); Mean Platelet Volume 12.1 fL (9.4-12.4); Monocytes # 0.9 K/mcL (0.0-1.3); Monocytes % 6.3 %; Neutrophils # 11.1 K/mcL (1.6-8.9); Platelet Count 249 K/mcL (140-400); Red Blood Count 3.54 M/mcL (4.19-5.50); Segmented Neutrophils % 76.6 %
[2018-10-11 03:18] LABS: BUN/Creatinine Ratio 32 (6-26); Blood Urea Nitrogen 29 mg/dL (8-23); Calcium 10.4 mg/dL (8.6-10.3); Carbon Dioxide 29 mEq/L (23-29); Chloride 108 mEq/L (98-107); Glucose 158 mg/dL (70-105); Osmolality,Calculated 303 (280-300); Potassium 3.8 mEq/L (3.5-5.1); Sodium 142 mEq/L (136-145); eGFR For Non-African Americans > 60 (> 60)
[2018-10-11] MEDS: cefTRIAXone 1,000 MG in Water for inj. (sterile) 20 ML 10 ML IVPB SCH (07:22)
[2018-10-11] MEDS: Insulin LISPRO 300 UNITS/3 ML VIAL SQ SCH ×3 (08:21→17:58)
--- NOTE | 2018-10-11 08:50 | Internal Med Progress Note ---
<Jared Cagle - Last Filed: 10/11/18 13:27> Hospitalist Progress Note - Encounter Date of Encounter: 10/11/18 Time of Encounter: 08:15 - Subjective Interval History: Patient was seen and examined at bedside this morning. Appears somewhat drowsy, but overall states that he is feeling fine. Denies nausea, vomiting, fever, chills, or suprapubic pain. Patients preliminary urine culture has grown gram- positive cocci, greater than 100,000 CFUs per milliliter. Blood cultures are still pending. White count today has slightly increased from 13.2-14.4. Once final report is back, we will tailor antibiotic therapy appropriately. Patient's daughter does not want him to return to his previous snf facility, she believes that the care he was receiving there was not adequate. Although we have a licensed social worker online facilitator, the SNF licensed social worker is not available, and will not be available until Friday. - Exam Vitals: Temp Pulse Resp BP Pulse Ox 97.4 F L 84 20 173/73 97 10/11/18 07:49 10/11/18 07:49 10/11/18 07:49 10/11/18 07:49 10/11/18 07:49 Exam: General: A&O X3, conversant, no acute distress; thin Head: atraumatic, normocephalic; mucous membranes dry Eye: PERRL, EOMI, conjuntiva pink, sclera anicteric Neck: Supple, trachea midline; No lymphadenopathy Respiratory: CTAB. No accessory muscle use, wheezes, rales, or rhonchi Cardiovascular: RRR, +S1/+S2; no murmurs, rubs, gallops Abdomen: Soft, nontender; no suprapubic tenderness present Extremities: warm, radial pulses palpable and symmetrical; Mild pain in the rig ht hip Neurological: CN II-XII intact Psychiatric: Normal affect, normal mood Skin: Dry, intact - Assessment and Plan (1) Complicated UTI (urinary tract infection) Current Visit: Yes Status: Acute Assessment and Plan: - Initially presented with altered mental status, leukocytosis at 23.8, and urinalysis suggestive of UTI - Urine culture is ordered and is currently pending - CT scan of the abdomen and pelvis demonstrated bilateral hydronephrosis and moderately distended bladder; possible bladder outlet obstruction - Was given 1 dose of Zosyn at [facility]; was started on Rocephin after transferred to [facility] - Patients white count has decreased to 17.1 - Patient denies abdominal or suprapubic pain on physical exam - Preliminary urine culture was positive for gram-positive cocci Plan: - Continue Rocephin; once final culture comes back, will tailor antibiotic therapy accordingly - Blood and urine cultures are pending; will tailor anti-biotic therapy accordingly (2) Bladder outlet obstruction Current Visit: Yes Status: Acute Assessment and Plan: - CT scan of the abdomen and pelvis demonstrated moderate bilateral hydronephrosis and hydroureter and distended bladder suggestive of bladder o utlet obstruction - This morning, patient reported no urinary output - Bladder scan was ordered; demonstrated 750 mL of urine present in the bladder - Attempted to place Rick catheter; was unsuccessful - Urology was consulted; difficult Rick was placed at bedside with 16-Danish coude - Per urology recommendations: Leave Rick indwelling, maximize BPH medications with tamsulosin and finasteride; outpatient cystoscopy with trial of void in 4 weeks (3) Acute encephalopathy Current Visit: Yes Status: Acute Assessment and Plan: - Resolved; Initially presented with altered mental status and weakness - Found to have UTI and DOMINGA - This morning, patient is alert and oriented x3 - He does not remember the events leading up to hospitalization (4) Type 2 diabetes mellitus Current Visit: Yes Status: Acute Assessment and Plan: - SSI (5) Coronary artery disease Current Visit: Yes Status: Acute Assessment and Plan: - Home ASA and Plavix - Time Spent with Patient Total time spent is greater than 50% in coordination of care (as documented) at patient's floor/unit and/or counseling patient: Internal Medicine: Result - Labs CBC & Chem 7: 10/11/18 02:27 10/11/18 02:27 Labs: Short CBC 10/11/18 Range/Units 02:27 WBC 14.4 H (4.3-11.1) K/mcL Hgb 10.4 L (12.9-16.9) g/dL Hct 33.4 L (37.5-50.1) % Plt Count 249 (140-400) K/mcL Neutrophils # 11.1 H (1.6-8.9) K/mcL BMP 10/11/18 02:27 Sodium 142 Potassium 3.8 Chloride 108 H Carbon Dioxide 29 BUN 29 H Creatinine 0.92 Glucose 158 H Calcium 10.4 H - ABG Interpretation ABG results: ABG ABG pH 7.40 pH Units (7.32-7.45) 10/08/18 22:51 ABG pCO2 46 mmHg (35-45) H 10/08/18 22:51 ABG pO2 73 mmHg (85-104) L 10/08/18 22:51 ABG O2 Saturation 94 % (95-98) L 10/08/18 22:51 PT/INR, D-dimer PT 12.3 Seconds (9.4-12.1) H 10/08/18 22:20 Consult Discharge Plan - Plan Referrals: Cony Cornelius DO [Primary Care Provider] - Prescriptions: Tamsulosin [Flomax] 0.4 mg PO DAILY #30 capsule Cefdinir [Omnicef] 300 mg PO BID #16 capsule Finasteride [Proscar] 5 mg PO DAILY #30 tablet <Betzaida Myers - Last Filed: 10/11/18 15:19> Hospitalist Progress Note - Encounter Date of Encounter: 10/11/18 - Exam Vitals: Temp Pulse Resp BP Pulse Ox 97.6 F 73 20 153/65 97 10/11/18 11:50 10/11/18 11:50 10/11/18 11:50 10/11/18 11:50 10/11/18 11:50 - Assessment and Plan (1) Acute encephalopathy Current Visit: Yes Status: Acute (2) Complicated UTI (urinary tract infection) Current Visit: Yes Status: Acute (3) Bilateral hydronephrosis Current Visit: Yes Status: Acute (4) DVT prophylaxis Current Visit: Yes Status: Acute (5) Type 2 diabetes mellitus Current Visit: Yes Status: Acute (6) Coronary artery disease Current Visit: Yes Status: Acute - Time Spent with Patient Total time spent is greater than 50% in coordination of care (as documented) at patient's floor/unit and/or counseling patient: Internal Medicine: Result - Labs CBC & Chem 7: 10/11/18 02:27 10/11/18 02:27 Labs: Short CBC 10/11/18 Range/Units 02:27 WBC 14.4 H (4.3-11.1) K/mcL Hgb 10.4 L (12.9-16.9) g/dL Hct 33.4 L (37.5-50.1) % Plt Count 249 (140-400) K/mcL Neutrophils # 11.1 H (1.6-8.9) K/mcL BMP 10/11/18 02:27 Sodium 142 Potassium 3.8 Chloride 108 H Carbon Dioxide 29 BUN 29 H Creatinine 0.92 Glucose 158 H Calcium 10.4 H - ABG Interpretation ABG results: ABG ABG pH 7.40 pH Units (7.32-7.45) 10/08/18 22:51 ABG pCO2 46 mmHg (35-45) H 10/08/18 22:51 ABG pO2 73 mmHg (85-104) L 10/08/18 22:51 ABG O2 Saturation 94 % (95-98) L 10/08/18 22:51 PT/INR, D-dimer PT 12.3 Seconds (9.4-12.1) H 10/08/18 22:20 - Attending Attestation I examined this patient and my medical decision-making was reviewed with the Resident Physician. I agree with the documented findings, disposition and treatment plan as described except to the extent set forth below. 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 (5) Coronary artery disease Qualifiers: Associated angina: angina presence unspecified Qualified Code(s): I25.10 - Atherosclerotic heart disease of [place]mi coronary artery without angina pectoris <Betzaida Myers - Last Filed: 10/11/18 15:19> (5) Type 2 diabetes mellitus Qualifiers: Proliferative retinopathy type: unspecified Diabetes mellitus macular edema: macular edema presence unspecified Laterality: unspecified laterality Quali fied Code(s): 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
[2018-10-11] MEDS: *HR* HYDROcodone/Acet 5/325 mg TABLET PO PRN (09:54)
[2018-10-11] MEDS: Finasteride 5 MG TABLET PO SCH (09:54)
[2018-10-11] MEDS: *HR* Heparin 5,000 UNIT/ML VIAL SQ SCH ×2 (09:54→14:59)
[2018-10-11] MEDS: Ascorbic Acid 500 MG TABLET PO SCH (09:54)
[2018-10-11] MEDS: *HR* HYDROcodone/Acet 7.5/325 mg TABLET PO PRN (15:08)
[2018-10-11] MEDS: Aspirin Enteric Coated 81 MG Tablet PO SCH (20:00)
[2018-10-11] MEDS: Insulin DETEMIR 100 UNIT/ML X5UNITS SQ SCH (20:02)
[2018-10-12] MEDS: *HR* Heparin 5,000 UNIT/ML VIAL SQ SCH ×3 (00:57→16:14)
[2018-10-12] MEDS: cefTRIAXone 1,000 MG in Water for inj. (sterile) 20 ML 10 ML IVPB SCH (06:15)
[2018-10-12 07:47] LABS: Basophils # 0.1 K/mcL (0.0-0.2); Basophils % 0.5 %; Eosinophils # 0.6 K/mcL (0.0-0.6); Eosinophils % 3.9 %; Hematocrit 33.9 % (37.5-50.1); Hemoglobin 10.7 g/dL (12.9-16.9); Immature Granulocytes % 0.5 % (0-4); Lymphocytes # 1.9 K/mcL (0.6-4.6); Lymphocytes % 13.3 %; Mean Corpuscular HGB Conc 31.6 g/dL (31.6-35.5); Mean Corpuscular Hemoglobin 29.6 pg (28.0-33.3); Mean Corpuscular Volume 93.9 fL (83.0-100.0); Mean Platelet Volume 11.9 fL (9.4-12.4); Monocytes % 6.9 %; Neutrophils # 10.5 K/mcL (1.6-8.9); Platelet Count 274 K/mcL (140-400); Red Blood Count 3.61 M/mcL (4.19-5.50); Red Cell Distribution Width 13.2 % (11.5-14.5); Segmented Neutrophils % 74.9 %
[2018-10-12 08:07] LABS: BUN/Creatinine Ratio 26 (6-26); Blood Urea Nitrogen 24 mg/dL (8-23); Calcium 10.7 mg/dL (8.6-10.3); Carbon Dioxide 28 mEq/L (23-29); Chloride 110 mEq/L (98-107); Glucose 67 mg/dL (70-105); Osmolality,Calculated 306 (280-300); Sodium 147 mEq/L (136-145); eGFR For Non-African Americans > 60 (> 60)
[2018-10-12] MEDS: Insulin LISPRO 300 UNITS/3 ML VIAL SQ SCH ×3 (08:50→17:51)
[2018-10-12] MEDS: Finasteride 5 MG TABLET PO SCH (08:51)
[2018-10-12] MEDS: Ascorbic Acid 500 MG TABLET PO SCH (08:52)
[2018-10-12] MEDS: *HR* HYDROcodone/Acet 5/325 mg TABLET PO PRN (08:58)
[2018-10-12] MEDS ORDERED: Ampicillin 1,000 MG in 0.9 % Sodium Chloride Mini Bag 100 ML IVPB ONE (09:56)
--- NOTE | 2018-10-12 10:00 | Internal Med Progress Note ---
<Jared Cagle - Last Filed: 10/12/18 13:31> Hospitalist Progress Note - Encounter Date of Encounter: 10/12/18 Time of Encounter: 09:59 - Subjective Interval History: Patient seen and examined at bedside. States that he is feeling well. Appears somewhat drowsy, but has no new complaints. Urine culture has grown Enterococcus faecalis, pansensitive. Antibiotics switched to ampicillin. Tomorrow, we will start the process of placing patient at a new long-term facility. - Exam Vitals: Temp Pulse Resp BP Pulse Ox 97.9 F 94 17 169/85 96 10/12/18 07:56 10/12/18 07:56 10/12/18 07:56 10/12/18 07:56 10/12/18 07:56 Exam: General: A&O X3, conversant, no acute distress; thin Head: atraumatic, normocephalic; mucous membranes dry Eye: PERRL, EOMI, conjuntiva pink, sclera anicteric Neck: Supple, trachea midline; No lymphadenopathy Respiratory: CTAB. No accessory muscle use, wheezes, rales, or rhonchi Cardiovascular: RRR, +S1/+S2; no murmurs, rubs, gallops Abdomen: Soft, nontender; no suprapubic tenderness present Extremities: warm, radial pulses palpable and symmetrical; Mild pain in the right hip Psychiatric: Normal affect, normal mood Skin: Dry, intact - Assessment and Plan (1) Complicated UTI (urinary tract infection) Current Visit: Yes Status: Acute Assessment and Plan: - Initially presented with altered mental status, leukocytosis at 23.8, and urinalysis suggestive of UTI - Urine culture is ordered and is currently pending - CT scan of the abdomen and pelvis demonstrated bilateral hydronephrosis and moderately distended bladder; possible bladder outlet obstruction - Was given 1 dose of Zosyn at [facility]; was started on Rocephin after transferred to [facility] - Patient denies abdominal or suprapubic pain on physical exam - Urine culture has grown Enterococcus faecalis, pansensitive - Leukocytosis improving; white count has decreased to 14.0 from 14.4 Plan: - Discontinue Rocephin; start ampicillin (2) Bladder outlet obstruction Current Visit: Yes Status: Acute Assessment and Plan: - CT scan of the abdomen and pelvis demonstrated moderate bilateral hydronephrosis and hydroureter and distended bladder suggestive of bladder outlet obstruction - This morning, patient reported no urinary output - Bladder scan was ordered; demonstrated 750 mL of urine present in the bladder - Attempted to place Rick catheter; was unsuccessful - Urology was consulted; difficult Rick was placed at bedside with 16-Colombian coude - I/O yesterday was -200 - Per urology recommendations: Leave Rick indwelling, maximize BPH medications with tamsulosin and finasteride; outpatient cystoscopy with trial of void in 4 weeks (3) Acute encephalopathy Current Visit: Yes Status: Acute Assessment and Plan: - Resolved; Initially presented with altered mental status and weakness - Found to have UTI and DOMINGA - This morning, patient is alert and oriented x3 - Continue antibiotic therapy (4) Type 2 diabetes mellitus Current Visit: Yes Status: Acute Assessment and Plan: - SSI (5) Coronary artery disease Current Visit: Yes Status: Acute Assessment and Plan: - Home ASA and Plavix - Time Spent with Patient Total time spent is greater than 50% in coordination of care (as documented) at patient's floor/unit and/or counseling patient: Internal Medicine: Result - Labs CBC & Chem 7: 10/12/18 07:27 10/12/18 07:27 Labs: Short CBC 10/12/18 Range/Units 07:27 WBC 14.0 H (4.3-11.1) K/mcL Hgb 10.7 L (12.9-16.9) g/dL Hct 33.9 L (37.5-50.1) % Plt Count 274 (140-400) K/mcL Neutrophils # 10.5 H (1.6-8.9) K/mcL BMP 10/12/18 07:27 Sodium 147 H Potassium 4.0 Chloride 110 H Carbon Dioxide 28 BUN 24 H Creatinine 0.94 Glucose 67 L Calcium 10.7 H - ABG Interpretation ABG results: ABG ABG pH 7.40 pH Units (7.32-7.45) 10/08/18 22:51 ABG pCO2 46 mmHg (35-45) H 10/08/18 22:51 ABG pO2 73 mmHg (85-104) L 10/08/18 22:51 ABG O2 Saturation 94 % (95-98) L 10/08/18 22:51 PT/INR, D-dimer PT 12.3 Seconds (9.4-12.1) H 10/08/18 22:20 Consult Discharge Plan - Plan Referrals: Cony Cornelius DO [Primary Care Provider] - Prescriptions: Tamsulosin [Flomax] 0.4 mg PO DAILY #30 capsule Cefdinir [Omnicef] 300 mg PO BID #16 capsule Finasteride [Proscar] 5 mg PO DAILY #30 tablet <Erma Myersnetta - Last Filed: 10/12/18 13:53> Hospitalist Progress Note - Encounter Date of Encounter: 10/12/18 - Exam Vitals: Temp Pulse Resp BP Pulse Ox 98.3 F 87 16 155/64 98 10/12/18 11:00 10/12/18 11:00 10/12/18 11:00 10/12/18 11:00 10/12/18 11:00 - Assessment and Plan (1) Acute encephalopathy Current Visit: Yes Status: Acute (2) Complicated UTI (urinary tract infection) Current Visit: Yes Status: Acute (3) Bilateral hydronephrosis Current Visit: Yes Status: Acute (4) DVT prophylaxis Current Visit: Yes Status: Acute (5) Type 2 diabetes mellitus Current Visit: Yes Status: Acute (6) Coronary artery disease Current Visit: Yes Status: Acute - Time Spent with Patient Total time spent is greater than 50% in coordination of care (as documented) at patient's floor/unit and/or counseling patient: Internal Medicine: Result - Labs CBC & Chem 7: 10/12/18 07:27 10/12/18 07:27 Labs: Short CBC 10/12/18 Range/Units 07:27 WBC 14.0 H (4.3-11.1) K/mcL Hgb 10.7 L (12.9-16.9) g/dL Hct 33.9 L (37.5-50.1) % Plt Count 274 (140-400) K/mcL Neutrophils # 10.5 H (1.6-8.9) K/mcL BMP 10/12/18 07:27 Sodium 147 H Potassium 4.0 Chloride 110 H Carbon Dioxide 28 BUN 24 H Creatinine 0.94 Glucose 67 L Calcium 10.7 H - ABG Interpretation ABG results: ABG ABG pH 7.40 pH Units (7.32-7.45) 10/08/18 22:51 ABG pCO2 46 mmHg (35-45) H 10/08/18 22:51 ABG pO2 73 mmHg (85-104) L 10/08/18 22:51 ABG O2 Saturation 94 % (95-98) L 10/08/18 22:51 PT/INR, D-dimer PT 12.3 Seconds (9.4-12.1) H 10/08/18 22:20 - Attending Attestation I examined this patient and my medical decision-making was reviewed with the Resident Physician. I agree with the documented findings, disposition and treatment plan as described except to the extent set forth below. 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 (5) Coronary artery disease Qualifiers: Associated angina: angina presence unspecified Qualified Code(s): I25.10 - Atherosclerotic heart disease of elem coronary artery without angina pectoris <Betzaida Myers - Last Filed: 10/12/18 13:53> (5) Type 2 diabetes mellitus Qualifiers: Proliferative retinopathy type: unspecified Diabetes mellitus macular edema: macular edema presence unspecified Laterality: unspecified laterality Qualified Code(s): E11.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
[2018-10-12] MEDS: Insulin DETEMIR 100 UNIT/ML X5UNITS SQ SCH (20:53)
[2018-10-12] MEDS: Aspirin Enteric Coated 81 MG Tablet PO SCH (20:53)
[2018-10-13] MEDS: *HR* Heparin 5,000 UNIT/ML VIAL SQ SCH ×3 (00:35→16:24)
[2018-10-13] MEDS: Finasteride 5 MG TABLET PO SCH (09:46)
[2018-10-13] MEDS: Insulin LISPRO 300 UNITS/3 ML VIAL SQ SCH ×3 (09:47→18:27)
[2018-10-13] MEDS: Ascorbic Acid 500 MG TABLET PO SCH (09:47)
[2018-10-13 10:43] LABS: Basophils # 0.1 K/mcL (0.0-0.2); Basophils % 0.7 %; Eosinophils # 0.8 K/mcL (0.0-0.6); Hematocrit 35.7 % (37.5-50.1); Hemoglobin 10.9 g/dL (12.9-16.9); Immature Granulocytes % 0.4 % (0-4); Lymphocytes # 1.9 K/mcL (0.6-4.6); Lymphocytes % 12.2 %; Mean Corpuscular HGB Conc 30.5 g/dL (31.6-35.5); Mean Corpuscular Hemoglobin 29.4 pg (28.0-33.3); Mean Corpuscular Volume 96.2 fL (83.0-100.0); Mean Platelet Volume 11.6 fL (9.4-12.4); Monocytes # 1.1 K/mcL (0.0-1.3); Monocytes % 6.9 %; Neutrophils # 11.5 K/mcL (1.6-8.9); Platelet Count 293 K/mcL (140-400); Red Blood Count 3.71 M/mcL (4.19-5.50); Red Cell Distribution Width 13.5 % (11.5-14.5); Segmented Neutrophils % 74.8 %
[2018-10-13 11:02] LABS: ABG Base Excess 7 mEq/L (-2 to 3); ABG HCO3 31 mEq/L (21-27); ABG Oxygen Saturation 96 % (95-98); ABG PCO2 40 mmHg (35-45); ABG PO2 76 mmHg (85-104); ABG TCO2 32 mEq/L (20-26)
[2018-10-13 11:07] LABS: BUN/Creatinine Ratio 26 (6-26); Blood Urea Nitrogen 25 mg/dL (8-23); Calcium 10.7 mg/dL (8.6-10.3); Carbon Dioxide 31 mEq/L (23-29); Chloride 110 mEq/L (98-107); Glucose 155 mg/dL (70-105); Osmolality,Calculated 308 (280-300); Potassium 4.2 mEq/L (3.5-5.1); Sodium 145 mEq/L (136-145); eGFR For Non-African Americans > 60 (> 60)
[2018-10-13 11:08] LABS: Albumin 3.2 g/dL (3.5-5.7); Albumin/Globulin Ratio 0.8 (1.1-2.2); Bilirubin,Direct 0.1 mg/dL (0.0-0.2); Bilirubin,Indirect 0.2 mg/dL (0.0-1.2); Bilirubin,Total 0.3 mg/dL (0.3-1.0); Globulin 3.8 g/dL (2.4-3.5)
[2018-10-13] MEDS ORDERED: Piperacillin/Tazobactam 3.375 GM in 0.9 % Sodium Chloride Mini Bag 100 ML IVPB SCH (13:40)
--- NOTE | 2018-10-13 14:03 | Internal Med Progress Note ---
<GurjitJared - Last Filed: 10/13/18 14:08> Hospitalist Progress Note - Encounter Date of Encounter: 10/13/18 Time of Encounter: 09:00 - Subjective Interval History: Patient appears somewhat altered today. Does not answer many questions. Does not say his name, location, or the year. He is able to answer some simple questions, but appears very drowsy. His white count increased today to 15.4. Due to concerns of possible infection, chest CT was ordered. It demonstrated the presence of bilateral lower lobe groundglass infiltrate, consistent with multifocal pneumonia. Also demonstrated findings consistent with inflammatory bronchiolitis. Due to these findings, patients antibiotic coverage will be broadened to vancomycin, Zosyn, and azithromycin. We will obtain urine antigens for strep and legionella and mycoplasma antigens. Overall, patient does not appear to be in any distress. He does not have a cough and does not appear to be in respiratory distress, but does not respond when asked if he is feeling short of breath, or if he has fever or chills. - Exam Vitals: Temp Pulse Resp BP Pulse Ox 98.7 F 101 16 160/85 95 10/13/18 12:11 10/13/18 12:11 10/13/18 12:11 10/13/18 12:11 10/13/18 12:11 Exam: Physical exam Limited to lack of patient cooperation General: Thin, alert and oriented 0, drowsy; does not answer questions Head: atraumatic, normocephalic; mucous membranes dry Eye: PERRL, EOMI Neck: Supple, trachea midline; No lymphadenopathy Respiratory: Diminished breath sounds bilaterally. No accessory muscle use, wheezes, rales, or rhonchi Cardiovascular: RRR, +S1/+S2; no murmurs, rubs, gallops Abdomen: Soft Extremities: warm, radial pulses palpable and symmetrical; Mild pain in the right hip Psychiatric: Unable to assess Skin: Dry, intact - Assessment and Plan (1) Multifocal pneumonia Current Visit: Yes Status: Acute Assessment and Plan: - As demonstrated on CT scan, 10/13/18: - Bilateral lower lobe ground-glass infiltrate, worse on L than R, is consistent with multifocal PNA - Bilateral upper lobe tree-in-bud nodular opacities are consistent with acute infectious or inflammatory bronchiolitis - Causative organism is unknown at this time - Diminished breath sounds bilaterally on physical exam; ROS is unobtainable due to patients mental status Plan: - Discontinue ampicillin; start vancomycin, Zosyn, and Zithromax - Repeat a.m. labs - Initiate pneumonia workup with sputum culture, urine antigens for strep and legionella, and mycoplasma IgG (2) Complicated UTI (urinary tract infection) Current Visit: Yes Status: Acute Assessment and Plan: - Initially presented with altered mental status, leukocytosis at 23.8, and urinalysis suggestive of UTI - Urine culture is ordered and is currently pending - CT scan of the abdomen and pelvis demonstrated bilateral hydronephrosis and moderately distended bladder; possible bladder outlet obstruction - Was given 1 dose of Zosyn at [facility]; was started on Rocephin after transferred to [facility] - Patient denies abdominal or suprapubic pain on physical exam - Urine culture has grown Enterococcus faecalis, pansensitive - Initially, rocephin was discontinued and switched to Ampicillin Plan: - Due to findings of pneumonia on imaging, we will switch to vancomycin, Zosyn, and azithromycin (3) Bladder outlet obstruction Current Visit: Yes Status: Acute Assessment and Plan: - CT scan of the abdomen and pelvis demonstrated moderate bilateral hydronephrosis and hydroureter and distended bladder suggestive of bladder outlet obstruction - Attempted to place Rick catheter when admitted; was unsuccessful - Urology was consulted; difficult Rick was placed at bedside with 16-[place]omb[place] coude - Per urology recommendations: Leave Rick indwelling, maximize BPH medications with tamsulosin and finasteride; outpatient cystoscopy with trial of void in 4 weeks (4) Acute encephalopathy Current Visit: Yes Status: Acute Assessment and Plan: - Resolved; Initially presented with altered mental status and weakness - Found to have UTI and DOMINGA - This morning, patient is alert and oriented x3 - Continue antibiotic therapy (5) Type 2 diabetes mellitus Current Visit: Yes Status: Acute Assessment and Plan: - SSI (6) Coronary artery disease Current Visit: Yes Status: Acute Assessment and Plan: - Home ASA and Plavix - Time Spent with Patient Total time spent is greater than 50% in coordination of care (as documented) at patient's floor/unit and/or counseling patient: Internal Medicine: Result - Labs CBC & Chem 7: 10/13/18 10:26 10/13/18 10:26 Labs: Short CBC 10/13/18 Range/Units 10:26 WBC 15.4 H (4.3-11.1) K/mcL Hgb 10.9 L (12.9-16.9) g/dL Hct 35.7 L (37.5-50.1) % Plt Count 293 (140-400) K/mcL Neutrophils # 11.5 H (1.6-8.9) K/mcL BMP 10/13/18 10:26 Sodium 145 Potassium 4.2 Chloride 110 H Carbon Dioxide 31 H BUN 25 H Creatinine 0.96 Glucose 155 H Calcium 10.7 H Cardiac Enzymes 10/13/18 Range/Units 10:26 Troponin I < 0.03 (< 0.04) ng/mL Liver Function 10/13/18 Range/Units 10:26 Total Bilirubin 0.3 (0.3-1.0) mg/dL Direct Bilirubin 0.1 (0.0-0.2) mg/dL AST 18 (13-39) Units/L ALT 13 (7-52) Units/L Alkaline Phosphatase 100 (34-104) Units/L Albumin 3.2 L (3.5-5.7) g/dL - ABG Interpretation ABG results: ABG ABG pH 7.50 pH Units (7.32-7.45) H 10/13/18 10:59 ABG pCO2 40 mmHg (35-45) 10/13/18 10:59 ABG pO2 76 mmHg (85-104) L 10/13/18 10:59 ABG O2 Saturation 96 % (95-98) 10/13/18 10:59 PT/INR, D-dimer PT 12.3 Seconds (9.4-12.1) H 10/08/18 22:20 - Impressions Impressions Chest X-Ray 10/13/18 09:50 IMPRESSION: 1. No acute cardiopulmonary disease. D/ / Atilio Ortega MD / Atilio Ortega MD Interpreting Provider: Atilio Ortega MD Abdomen/Pelvis CT 10/13/18 09:53 IMPRESSION: Motion degraded study. Bilateral lower lobe ground-glass infiltrate, worse on the left than the right, is consistent with multifocal pneumonia. Bilateral upper lobe tree-in-bud nodular opacities are consistent with acute infectious or inflammatory bronchiolitis. Previously noted small bilateral pulmonary nodules have not significantly changed. Given approximately 1 year of stability, nodules are likely benign and do not require dedicated imaging follow-up. Mild bilateral hydronephrosis. No radiopaque renal calculi. Mild, diffuse urinary bladder wall thickening. 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 Consider correlation with urinalysis. Rectum is distended with stool, measuring up to 8 cm in diameter. Mild rectal wall thickening. Correlate with clinical symptoms of fecal impaction. D/ : / 10/13/2018 11:43:29 Giana Lagos MD / savanna Interpreting Provider: Giana Lagos MD Chest CT 10/13/18 09:53 IMPRESSION: Motion degraded study. Bilateral lower lobe ground-glass infiltrate, worse on the left than the right, is consistent with multifocal pneumonia. Bilateral upper lobe tree-in-bud nodular opacities are consistent with acute infectious or inflammatory bronchiolitis. Previously noted small bilateral pulmonary nodules have not significantly changed. Given approximately 1 year of stability, nodules are likely benign and do not require dedicated imaging follow-up. Mild bilateral hydronephrosis. No radiopaque renal calculi. Mild, diffuse urinary bladder wall thickening. 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 Consider correlation with urinalysis. Rectum is distended with stool, measuring up to 8 cm in diameter. Mild rectal wall thickening. Correlate with clinical symptoms of fecal impaction. D/ /13/2018 11:43:29 Giana Lagos MD / savanna Interpreting Provider: Giana Lagos MD Lower Extremity CT 10/13/18 10:01 IMPRESSION: 1. Mild nonspecific edema in the right lower extremity and foot. 2. Generalized osteopenia. D/ : / 10/13/2018 11:26:03 Isreal Guy MD / jo Interpreting Provider: Isreal Guy MD Consult Discharge Plan - Plan Referrals: Cony Cornelius DO [Primary Care Provider] - Prescriptions: Tamsulosin [Flomax] 0.4 mg PO DAILY #30 capsule Cefdinir [Omnicef] 300 mg PO BID #16 capsule Finasteride [Proscar] 5 mg PO DAILY #30 tablet <Betzaida Myers - Last Filed: 10/13/18 22:30> Hospitalist Progress Note - Encounter Date of Encounter: 10/13/18 - Exam Vitals: Temp Pulse Resp BP Pulse Ox 97.8 F 104 16 106/58 98 10/13/18 19:29 10/13/18 19:29 10/13/18 19:29 10/13/18 19:29 10/13/18 19:29 - Assessment and Plan (1) Acute encephalopathy Current Visit: Yes Status: Acute (2) Complicated UTI (urinary tract infection) Current Visit: Yes Status: Acute (3) Bilateral hydronephrosis Current Visit: Yes Status: Acute (4) DVT prophylaxis Current Visit: Yes Status: Acute (5) Type 2 diabetes mellitus Current Visit: Yes Status: Acute (6) Coronary artery disease Current Visit: Yes Status: Acute - Time Spent with Patient Total time spent is greater than 50% in coordination of care (as documented) at patient's floor/unit and/or counseling patient: Internal Medicine: Result - Labs CBC & Chem 7: 10/13/18 10:26 10/13/18 10:26 Labs: Short CBC 10/13/18 Range/Units 10:26 WBC 15.4 H (4.3-11.1) K/mcL Hgb 10.9 L (12.9-16.9) g/dL Hct 35.7 L (37.5-50.1) % Plt Count 293 (140-400) K/mcL Neutrophils # 11.5 H (1.6-8.9) K/mcL BMP 10/13/18 10:26 Sodium 145 Potassium 4.2 Chloride 110 H Carbon Dioxide 31 H BUN 25 H Creatinine 0.96 Glucose 155 H Calcium 10.7 H Cardiac Enzymes 10/13/18 Range/Units 10:26 Troponin I < 0.03 (< 0.04) ng/mL Liver Function 10/13/18 Range/Units 10:26 Total Bilirubin 0.3 (0.3-1.0) mg/dL Direct Bilirubin 0.1 (0.0-0.2) mg/dL AST 18 (13-39) Units/L ALT 13 (7-52) Units/L Alkaline Phosphatase 100 (34-104) Units/L Albumin 3.2 L (3.5-5.7) g/dL Urine 10/13/18 Range/Units 10:09 Urine Color Yellow (Yellow) Urine Clarity Cloudy A (Clear) Urine pH 7.0 (5.0-8.0) pH Units Ur Specific [place] 1.013 (1.010-1.025) Urine Protein >=300 H (Neg-Trace) mg/dL Urine Glucose (UA) Normal (Normal) mg/dL - ABG Interpretation ABG results: ABG ABG pH 7.50 pH Units (7.32-7.45) H 10/13/18 10:59 ABG pCO2 40 mmHg (35-45) 10/13/18 10:59 ABG pO2 76 mmHg (85-104) L 10/13/18 10:59 ABG O2 Saturation 96 % (95-98) 10/13/18 10:59 PT/INR, D-dimer PT 12.3 Seconds (9.4-12.1) H 10/08/18 22:20 - Impressions Impressions Chest X-Ray 10/13/18 09:50 IMPRESSION: 1. No acute cardiopulmonary disease. D/ / Atilio Ortega MD / Atilio Ortega MD Interpreting Provider: Atilio Ortega MD Abdomen/Pelvis CT 10/13/18 09:53 IMPRESSION: Motion degraded study. Bilateral lower lobe ground-glass infiltrate, worse on the left than the right, is consistent with multifocal pneumonia. Bilateral upper lobe tree-in-bud nodular opacities are consistent with acute infectious or inflammatory bronchiolitis. Previously noted small bilateral pulmonary nodules have not significantly changed. Given approximately 1 year of stability, nodules are likely benign and do not require dedicated imaging follow-up. Mild bilateral hydronephrosis. No radiopaque renal calculi. Mild, diffuse urinary bladder wall thickening. 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 Consider correlation with urinalysis. Rectum is distended with stool, measuring up to 8 cm in diameter. Mild rectal wall thickening. Correlate with clinical symptoms of fecal impaction. D/ / 10/13/2018 11:43:29 Giana Lagos MD / savanna Interpreting Provider: Giana Lagos MD Chest CT 10/13/18 09:53 IMPRESSION: Motion degraded study. Bilateral lower lobe ground-glass infiltrate, worse on the left than the right, is consistent with multifocal pneumonia. Bilateral upper lobe tree-in-bud nodular opacities are consistent with acute infectious or inflammatory bronchiolitis. Previously noted small bilateral pulmonary nodules have not significantly changed. Given approximately 1 year of stability, nodules are likely benign and do not require dedicated imaging follow-up. Mild bilateral hydronephrosis. No radiopaque renal calculi. Mild, diffuse urinary bladder wall thickening. 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 Consider correlation with urinalysis. Rectum is distended with stool, measuring up to 8 cm in diameter. Mild rectal wall thickening. Correlate with clinical symptoms of fecal impaction. D/ / 10/13/2018 11:43:29 Giana Lagos MD / savanna Interpreting Provider: Giana Lagos MD Lower Extremity CT 10/13/18 10:01 IMPRESSION: 1. Mild nonspecific edema in the right lower extremity and foot. 2. Generalized osteopenia. D/ / 10/13/2018 11:26:03 Isreal Guy MD / [email or web address] Interpreting Provider: Isreal Guy MD - Attending Attestation I examined this patient and my medical decision-making was reviewed with the Resident Physician. I agree with the documented findings, disposition and treatment plan as described except to the extent set forth below. Patient was medically stable from confusion and UTI standpoint. Discharge was delayed due to placement over Day weekend. Patient today developed some more confusion and mild distress. CT chest showed multifocal pneumonia. Patient will be treated for HAP and discharge will be cancelled until pneumonia improves. 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 - Type 2 diabetes mellitus with proliferative diabetic retinopathy without macular edema, unspecified eye; Z79.4 - top polisher (current) use of insulin (6) Coronary artery disease Qualifiers: Associated angina: angina presence unspecified Qualified Code(s): I25.10 - Atherosclerotic heart disease of [place] coronary artery without angina pectoris <Betzaida Myers - Last Filed: 10/13/18 22:30> (5) Type 2 diabetes mellitus Qualifiers: Proliferative retinopathy type: unspecified Diabetes mellitus macular edema: macular edema presence unspecified Laterality: unspecified laterality Qualified Code(s): E11.3599 - Type 2 diabetes mellitus with proliferative diabetic retinopathy without macular edema, unspecified eye; Z79.4 - top polisher (current) use of insulin (6) Coronary artery disease Qualifiers: Associated angina: angina presence unspecified Qualified Code(s): I25.10 - Atherosclerotic heart disease of [place] coronary artery without angina pectoris
[2018-10-13] MEDS: Azithromycin 500 MG in D5% in Water 250 ML IVPB SCH (14:53)
[2018-10-13] MEDS: *HR* HYDROcodone/Acet 5/325 mg TABLET PO PRN (15:02)
[2018-10-13 15:21] LABS: Bilirubin,Urine Negative (Negative); Blood,Urine Large (Negative); Clarity,Urine Cloudy (Clear); Color,Urine Yellow (Yellow); Glucose,Urine (UA) Normal (Normal); Ketones,Urine Trace mg/dL (Negative); Leukocyte Esterase,Urine Moderate (Negative); Nitrite,Urine Negative (Negative); Protein,Urine >=300 mg/dL (Neg-Trace); Specific Gravity,Urine 1.013 (1.010-1.025); Urobilinogen,Urine Normal (Normal)
[2018-10-13 15:22] LABS: Bacteria,Urine None Seen per hpf (None-Few); Hyaline Casts,Urine Moderate per lpf (None-Few); RBC,Urine TNTC per hpf (0-3); Squamous Epithelial Cell,Urine Moderate per lpf (None-Few); WBC,Urine 50-100 per hpf (0-3)
[2018-10-13 15:39] LABS: Mucus,Urine Few (Few); Renal Epithelial Cells,Urine Few per hpf (None-Few)
[2018-10-13] MEDS: Aspirin Enteric Coated 81 MG Tablet PO SCH (21:40)
[2018-10-13] MEDS: Insulin DETEMIR 100 UNIT/ML X5UNITS SQ SCH (21:40)
[2018-10-14] MEDS: *HR* Heparin 5,000 UNIT/ML VIAL SQ SCH ×4 (00:40→23:56)
[2018-10-14] MEDS: Piperacillin/Tazobactam 3.375 GM in 0.9 % Sodium Chloride Mini Bag 100 ML IVPB SCH ×4 (00:41→23:56)
--- NOTE | 2018-10-14 08:23 | Internal Med Progress Note ---
<Jaelyn Hahn - Last Filed: 10/14/18 15:20> Hospitalist Progress Note - Encounter Date of Encounter: 10/14/18 - Exam Vitals: Temp Pulse Resp BP Pulse Ox 98.6 F 84 16 154/64 99 10/14/18 11:17 10/14/18 11:17 10/14/18 11:17 10/14/18 11:17 10/14/18 11:17 - Assessment and Plan (1) Acute encephalopathy Current Visit: Yes Status: Acute (2) Complicated UTI (urinary tract infection) Current Visit: Yes Status: Acute (3) Bilateral hydronephrosis Current Visit: Yes Status: Acute (4) DVT prophylaxis Current Visit: Yes Status: Acute (5) Type 2 diabetes mellitus Current Visit: Yes Status: Acute (6) Coronary artery disease Current Visit: Yes Status: Acute - Time Spent with Patient Total time spent is greater than 50% in coordination of care (as documented) at patient's floor/unit and/or counseling patient: Internal Medicine: Result - Labs CBC & Chem 7: 10/14/18 10:58 10/14/18 10:58 Labs: Short CBC 10/14/18 Range/Units 10:58 WBC 15.5 H (4.3-11.1) K/mcL Hgb 10.0 L (12.9-16.9) g/dL Hct 32.3 L (37.5-50.1) % Plt Count 303 (140-400) K/mcL Neutrophils # 11.4 H (1.6-8.9) K/mcL BMP 10/14/18 10:58 Sodium 140 Potassium 4.1 Chloride 105 Carbon Dioxide 29 BUN 26 H Creatinine 1.07 Glucose 280 H Calcium 9.8 Urine 10/13/18 Range/Units 10:09 Urine Color Yellow (Yellow) Urine Clarity Cloudy A (Clear) Urine pH 7.0 (5.0-8.0) pH Units Ur Specific Lutts 1.013 (1.010-1.025) Urine Protein >=300 H (Neg-Trace) mg/dL Urine Glucose (UA) Normal (Normal) mg/dL - ABG Interpretation ABG results: ABG ABG pH 7.50 pH Units (7.32-7.45) H 10/13/18 10:59 ABG pCO2 40 mmHg (35-45) 10/13/18 10:59 ABG pO2 76 mmHg (85-104) L 10/13/18 10:59 ABG O2 Saturation 96 % (95-98) 10/13/18 10:59 PT/INR, D-dimer PT 12.3 Seconds (9.4-12.1) H 10/08/18 22:20 - Impressions Impressions Lower Extremity CT 10/13/18 10:01 IMPRESSION: 1. Mild nonspecific edema in the right lower extremity and foot. 2. Generalized osteopenia. D/ / 10/13/2018 11:26:03 Isreal Guy MD / jo Interpreting Provider: Isreal Guy MD Consult Discharge Plan - Plan Referrals: Cony Cornelius DO [Primary Care Provider] - Prescriptions: Tamsulosin [Flomax] 0.4 mg PO DAILY #30 capsule Cefdinir [Omnicef] 300 mg PO BID #16 capsule Finasteride [Proscar] 5 mg PO DAILY #30 tablet - Attending Attestation I examined this patient and my medical decision-making was reviewed with the Resident Physician Dr Cagle. I agree with the documented findings, disposition and treatment plan as described except to the extent set forth below. Mr Saucedo is admitted with encephalopathy, UTI and now multifocal pna asleep, awakes to name and touching arm. he can say his name and answers questions regarding pain, but very somnolent. notes having "joint pain". no family present gen- somnolent,appears stated age eyes- pupils equal round cv- reg rate and rhythm, normal s1,s2, no murmurs appreciated, no le edema lungs- ctabl, no wheezing, rhonchi or crackles in ant/ lat gong, pt too somnolent to sit for posterior exam, normal resp effort abd- soft, no apparent tenderness, no gaurd or grimace, non distended, + bs skin- warm, dry, no rash, no ecchymosis msk- BL LE joints without erythema, warmth, effusion neuro- somnolent, follows commands, difficulty maintaing attention to answer questions Multifocal pna, organism unknown, MRSA screen + - cont vanc + zosyn + azithro Complicated UTI Enterococcus faecalis- currently vanc + zosyn as abvoe to complete course Bladder obstruction- appreciate urology recs, maintain buck cath, outpt cysto in 4 weeks with voiding trial at that time Encephalopathy, suspected related to infectious process noted above- abx as abvoe and cont monitoring for further improvement Stable normocytic anemia without overt bleeding, no prior for comparison to know if acute or chronic though on iron at home- cont to monitor, cont iron Joint pain- had CT foot yesterday which had no significant findings, hold opiates given mentation and prn tylenol ordered further diagnoses and plan as noted by resident <Jared Cagle - Last Filed: 10/14/18 17:19> Hospitalist Progress Note - Encounter Date of Encounter: 10/14/18 Time of Encounter: 08:14 - Subjective Interval History: Patient was seen and examined at bedside this morning. Similar to yesterday, patient appears very drowsy. Does not answer many questions. He is able to give yes or no answers to simple questions, but does not follow simple commands. Denies pain, fever, shortness of breath. His encephalopathy is most likely due to infectious cause; currently receiving vancomycin, Zosyn, and Zithromax for multifocal pneumonia and urinary tract infection. Does not appear to be in any distress at this time. - Exam Vitals: Temp Pulse Resp BP Pulse Ox 97.9 F 95 18 173/77 97 10/14/18 07:29 10/14/18 07:29 10/14/18 07:29 10/14/18 07:29 10/14/18 07:29 Exam: Physical exam Limited to lack of patient cooperation General: Thin, alert and oriented 0, drowsy; does not answer many questions Head: atraumatic, normocephalic; mucous membranes dry Eye: PERRL, EOMI Neck: Supple, trachea midline; No lymphadenopathy Respiratory: Diminished breath sounds bilaterally. No accessory muscle use, wheezes, rales, or rhonchi Cardiovascular: RRR, +S1/+S2; no murmurs, rubs, gallops Abdomen: Soft Extremities: warm, radial pulses palpable and symmetrical; Mild pain in the right hip Psychiatric: Unable to assess Skin: Dry, intact - Assessment and Plan (1) Multifocal pneumonia Current Visit: Yes Status: Acute Assessment and Plan: - As demonstrated on CT scan, 10/13/18: - Bilateral lower lobe ground-glass infiltrate, worse on L than R, is consistent with multifocal PNA - Bilateral upper lobe tree-in-bud nodular opacities are consistent with acute infectious or inflammatory bronchiolitis - Causative organism is unknown at this time - Diminished breath sounds bilaterally on physical exam; ROS is unobtainable due to patients mental status - MRSA screen was positive Plan: - Continue vancomycin, Zosyn, and Zithromax - Repeat a.m. labs (2) Complicated UTI (urinary tract infection) Current Visit: Yes Status: Acute Assessment and Plan: - Initially presented with altered mental status, leukocytosis at 23.8, and urinalysis suggestive of UTI - Urine culture is ordered and is currently pending - CT scan of the abdomen and pelvis demonstrated bilateral hydronephrosis and moderately distended bladder; possible bladder outlet obstruction - Was given 1 dose of Zosyn at [facility]; was started on Rocephin after transferred to [facility] - Urine culture has grown Enterococcus faecalis, pansensitive - Initially, rocephin was discontinued and switched to Ampicillin; was then switched again after CT scan of the chest demonstrated multifocal pneumonia; MRSA screen today was positive Plan: - Continue vancomycin, Zosyn, and azithromycin (3) Bladder outlet obstruction Current Visit: Yes Status: Acute Assessment and Plan: - CT scan of the abdomen and pelvis demonstrated moderate bilateral hy dronephrosis and hydroureter and distended bladder suggestive of bladder outlet obstruction - Attempted to place Buck catheter when admitted; was unsuccessful - Urology was consulted; difficult Buck was placed at bedside with 16-Kinyarwanda coude - Per urology recommendations: Leave Buck indwelling, maximize BPH medications with tamsulosin and finasteride; outpatient cystoscopy with trial of void in 4 weeks (4) Acute encephalopathy Current Visit: Yes Status: Acute Assessment and Plan: - Likely secondary to urinary tract infection and multifocal pneumonia - Plan as above (5) Type 2 diabetes mellitus Current Visit: Yes Status: Acute Assessment and Plan: - SSI (6) Coronary artery disease Current Visit: Yes Status: Acute Assessment and Plan: - Home ASA and Plavix - Time Spent with Patient Total time spent is greater than 50% in coordination of care (as documented) at patient's floor/unit and/or counseling patient: Internal Medicine: Result - Labs CBC & Chem 7: 10/14/18 10:58 10/14/18 10:58 Labs: Short CBC 10/13/18 Range/Units 10:26 WBC 15.4 H (4.3-11.1) K/mcL Hgb 10.9 L (12.9-16.9) g/dL Hct 35.7 L (37.5-50.1) % Plt Count 293 (140-400) K/mcL Neutrophils # 11.5 H (1.6-8.9) K/mcL BMP 10/13/18 10:26 Sodium 145 Potassium 4.2 Chloride 110 H Carbon Dioxide 31 H BUN 25 H Creatinine 0.96 Glucose 155 H Calcium 10.7 H Cardiac Enzymes 10/13/18 Range/Units 10:26 Troponin I < 0.03 (< 0.04) ng/mL Liver Function 10/13/18 Range/Units 10:26 Total Bilirubin 0.3 (0.3-1.0) mg/dL Direct Bilirubin 0.1 (0.0-0.2) mg/dL AST 18 (13-39) Units/L ALT 13 (7-52) Units/L Alkaline Phosphatase 100 (34-104) Units/L Albumin 3.2 L (3.5-5.7) g/dL Urine 10/13/18 Range/Units 10:09 Urine Color Yellow (Yellow) Urine Clarity Cloudy A (Clear) Urine pH 7.0 (5.0-8.0) pH Units Ur Specific Lutts 1.013 (1.010-1.025) Urine Protein >=300 H (Neg-Trace) mg/dL Urine Glucose (UA) Normal (Normal) mg/dL - ABG Interpretation ABG results: ABG ABG pH 7.50 pH Units (7.32-7.45) H 10/13/18 10:59 ABG pCO2 40 mmHg (35-45) 10/13/18 10:59 ABG pO2 76 mmHg (85-104) L 10/13/18 10:59 ABG O2 Saturation 96 % (95-98) 10/13/18 10:59 PT/INR, D-dimer PT 12.3 Seconds (9.4-12.1) H 10/08/18 22:20 - Impressions Impressions Chest X-Ray 10/13/18 09:50 IMPRESSION: 1. No acute cardiopulmonary disease. D/ / Atilio Ortega MD / Atilio Ortega MD Interpreting Provider: Atilio Ortega MD Abdomen/Pelvis CT 10/13/18 09:53 IMPRESSION: Motion degraded study. Bilateral lower lobe ground-glass infiltrate, worse on the left than the right, is consistent with multifocal pneumonia. Bilateral upper lobe tree-in-bud nodular opacities are consistent with acute infectious or inflammatory bronchiolitis. Previously noted small bilateral pulmonary nodules have not significantly changed. Given approximately 1 year of stability, nodules are likely benign and do not require dedicated imaging follow-up. Mild bilateral hydronephrosis. No radiopaque renal calculi. Mild, diffuse urinary bladder wall thickening. 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 Consider correlation with urinalysis. Rectum is distended with stool, measuring up to 8 cm in diameter. Mild rectal wall thickening. Correlate with clinical symptoms of fecal impaction. D/ / 10/13/2018 11:43:29 Giana Lagos MD / savanna Interpreting Provider: Giana Lagos MD Chest CT 10/13/18 09:53 IMPRESSION: Motion degraded study. Bilateral lower lobe ground-glass infiltrate, worse on the left than the right, is consistent with multifocal pneumonia. Bilateral upper lobe tree-in-bud nodular opacities are consistent with acute infectious or inflammatory bronchiolitis. Previously noted small bilateral pulmonary nodules have not significantly changed. Given approximately 1 year of stability, nodules are likely benign and do not require dedicated imaging follow-up. Mild bilateral hydronephrosis. No radiopaque renal calculi. Mild, diffuse urinary bladder wall thickening. 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 Consider correlation with urinalysis. Rectum is distended with stool, measuring up to 8 cm in diameter. Mild rectal wall thickening. Correlate with clinical symptoms of fecal impaction. D/ / 10/13/2018 11:43:29 Giana Lagos MD / savanna Interpreting Provider: Giana Lagos MD Lower Extremity CT 10/13/18 10:01 IMPRESSION: 1. Mild nonspecific edema in the right lower extremity and foot. 2. Generalized osteopenia. 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, unspecified eye; Z79.4 - shelter (current) use of insulin (6) Coronary artery disease Qualifiers: Associated angina: angina presence unspecified Qualified Code(s): I25.10 - Atherosclerotic heart disease of [place] coronary artery without angina pectoris <Jared Cagle - Last Filed: 10/14/18 17:19> (5) Type 2 diabetes mellitus Qualifiers: Proliferative retinopathy type: unspecified Diabetes mellitus macular edema: macular edema presence unspecified Laterality: unspecified laterality Qualified Code(s): E11.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
[2018-10-14] MEDS: Ascorbic Acid 500 MG TABLET PO SCH (09:18)
[2018-10-14] MEDS: *HR* HYDROcodone/Acet 5/325 mg TABLET PO PRN (09:18)
[2018-10-14] MEDS: Finasteride 5 MG TABLET PO SCH (09:18)
[2018-10-14] MEDS: Insulin LISPRO 300 UNITS/3 ML VIAL SQ SCH ×3 (09:19→17:24)
[2018-10-14 12:27] LABS: Basophils # 0.1 K/mcL (0.0-0.2); Basophils % 0.7 %; Eosinophils # 0.9 K/mcL (0.0-0.6); Hematocrit 32.3 % (37.5-50.1); Immature Granulocytes % 0.6 % (0-4); Lymphocytes # 1.8 K/mcL (0.6-4.6); Lymphocytes % 11.8 %; Mean Corpuscular Hemoglobin 29.6 pg (28.0-33.3); Mean Corpuscular Volume 95.6 fL (83.0-100.0); Mean Platelet Volume 12.1 fL (9.4-12.4); Monocytes # 1.1 K/mcL (0.0-1.3); Monocytes % 7.1 %; Neutrophils # 11.4 K/mcL (1.6-8.9); Platelet Count 303 K/mcL (140-400); Red Blood Count 3.38 M/mcL (4.19-5.50); Red Cell Distribution Width 13.7 % (11.5-14.5); Segmented Neutrophils % 73.8 %
[2018-10-14 12:37] LABS: BUN/Creatinine Ratio 24 (6-26); Blood Urea Nitrogen 26 mg/dL (8-23); Calcium 9.8 mg/dL (8.6-10.3); Carbon Dioxide 29 mEq/L (23-29); Chloride 105 mEq/L (98-107); Glucose 280 mg/dL (70-105); Osmolality,Calculated 305 (280-300); Potassium 4.1 mEq/L (3.5-5.1); Sodium 140 mEq/L (136-145); eGFR For Non-African Americans > 60 (> 60)
[2018-10-14] MEDS: Azithromycin 500 MG in D5% in Water 250 ML IVPB SCH (13:18)
[2018-10-14] MEDS: Insulin DETEMIR 100 UNIT/ML X5UNITS SQ SCH (20:23)
[2018-10-14] MEDS: Aspirin Enteric Coated 81 MG Tablet PO SCH (20:23)
[2018-10-15 02:29] LABS: Basophils # 0.1 K/mcL (0.0-0.2); Basophils % 0.7 %; Eosinophils # 1.1 K/mcL (0.0-0.6); Hematocrit 31.8 % (37.5-50.1); Hemoglobin 10.1 g/dL (12.9-16.9); Immature Granulocytes % 0.7 % (0-4); Lymphocytes # 2.3 K/mcL (0.6-4.6); Lymphocytes % 15.2 %; Mean Corpuscular HGB Conc 31.8 g/dL (31.6-35.5); Mean Corpuscular Hemoglobin 29.9 pg (28.0-33.3); Mean Corpuscular Volume 94.1 fL (83.0-100.0); Mean Platelet Volume 11.4 fL (9.4-12.4); Monocytes # 1.1 K/mcL (0.0-1.3); Monocytes % 7.2 %; Neutrophils # 10.6 K/mcL (1.6-8.9); Platelet Count 315 K/mcL (140-400); Red Blood Count 3.38 M/mcL (4.19-5.50); Red Cell Distribution Width 13.4 % (11.5-14.5); Segmented Neutrophils % 69.2 %
[2018-10-15 02:50] LABS: BUN/Creatinine Ratio 23 (6-26); Blood Urea Nitrogen 23 mg/dL (8-23); Calcium 9.7 mg/dL (8.6-10.3); Carbon Dioxide 29 mEq/L (23-29); Chloride 108 mEq/L (98-107); Glucose 180 mg/dL (70-105); Osmolality,Calculated 304 (280-300); Potassium 3.7 mEq/L (3.5-5.1); Sodium 143 mEq/L (136-145); eGFR For Non-African Americans > 60 (> 60)
[2018-10-15] MEDS: Acetaminophen 325 MG TABLET PO PRN ×3 (08:56→21:11)
[2018-10-15] MEDS: Ascorbic Acid 500 MG TABLET PO SCH (08:57)
[2018-10-15] MEDS: Finasteride 5 MG TABLET PO SCH (08:57)
[2018-10-15] MEDS: *HR* Heparin 5,000 UNIT/ML VIAL SQ SCH ×2 (08:58→16:03)
[2018-10-15] MEDS: Insulin LISPRO 300 UNITS/3 ML VIAL SQ SCH ×3 (08:59→17:24)
[2018-10-15] MEDS: Piperacillin/Tazobactam 3.375 GM in 0.9 % Sodium Chloride Mini Bag 100 ML IVPB SCH ×2 (08:59→16:04)
[2018-10-15] MEDS: Azithromycin 500 MG in D5% in Water 250 ML IVPB SCH (13:34)
--- NOTE | 2018-10-15 13:52 | Internal Med Progress Note ---
<Jaelyn Hahn - Last Filed: 10/15/18 15:22> Hospitalist Progress Note - Encounter Date of Encounter: 10/15/18 - Exam Vitals: Temp Pulse Resp BP Pulse Ox 98.0 F 69 18 147/68 99 10/15/18 11:51 10/15/18 11:51 10/15/18 11:51 10/15/18 11:51 10/15/18 11:51 - Assessment and Plan (1) Acute encephalopathy Current Visit: Yes Status: Acute (2) Complicated UTI (urinary tract infection) Current Visit: Yes Status: Acute (3) Bilateral hydronephrosis Current Visit: Yes Status: Acute (4) DVT prophylaxis Current Visit: Yes Status: Acute (5) Type 2 diabetes mellitus Current Visit: Yes Status: Acute (6) Coronary artery disease Current Visit: Yes Status: Acute - Time Spent with Patient Total time spent is greater than 50% in coordination of care (as documented) at patient's floor/unit and/or counseling patient: Internal Medicine: Result - Labs CBC & Chem 7: 10/15/18 02:17 10/15/18 02:17 Labs: Short CBC 10/15/18 Range/Units 02:17 WBC 15.2 H (4.3-11.1) K/mcL Hgb 10.1 L (12.9-16.9) g/dL Hct 31.8 L (37.5-50.1) % Plt Count 315 (140-400) K/mcL Neutrophils # 10.6 H (1.6-8.9) K/mcL BMP 10/15/18 02:17 Sodium 143 Potassium 3.7 Chloride 108 H Carbon Dioxide 29 BUN 23 Creatinine 1.01 Glucose 180 H Calcium 9.7 - ABG Interpretation ABG results: ABG ABG pH 7.50 pH Units (7.32-7.45) H 10/13/18 10:59 ABG pCO2 40 mmHg (35-45) 10/13/18 10:59 ABG pO2 76 mmHg (85-104) L 10/13/18 10:59 ABG O2 Saturation 96 % (95-98) 10/13/18 10:59 PT/INR, D-dimer PT 12.3 Seconds (9.4-12.1) H 10/08/18 22:20 - Impressions Impressions Abdomen/Pelvis CT 10/13/18 09:53 IMPRESSION: Motion degraded study. Bilateral lower lobe ground-glass infiltrate, worse on the left than the right, is consistent with multifocal pneumonia. Bilateral upper lobe tree-in-bud nodular opacities are consistent with acute infectious or inflammatory bronchiolitis. Previously noted small bilateral pulmonary nodules have not significantly changed. Given approximately 1 year of stability, nodules are likely benign and do not require dedicated imaging follow-up. Mild bilateral hydronephrosis. No radiopaque renal calculi. Mild, diffuse urinary bladder wall thickening. Findings may be related to cystitis and/or lines tender is. Consider correlation with urinalysis. Rectum is distended with stool, measuring up to 8 cm in diameter. Mild rectal wall thickening. Correlate with clinical symptoms of fecal impaction. D/ : / 10/13/2018 11:43:29 Giana Lagos MD / savanna Interpreting Provider: Giana Lagos MD Chest CT 10/13/18 09:53 IMPRESSION: Motion degraded study. Bilateral lower lobe ground-glass infiltrate, worse on the left than the right, is consistent with multifocal pneumonia. Bilateral upper lobe tree-in-bud nodular opacities are consistent with acute infectious or inflammatory bronchiolitis. Previously noted small bilateral pulmonary nodules have not significantly changed. Given approximately 1 year of stability, nodules are likely benign and do not require dedicated imaging follow-up. Mild bilateral hydronephrosis. No radiopaque renal calculi. Mild, diffuse urinary bladder wall thickening. Findings may be related to cystitis and/or lines tender is. Consider correlation with urinalysis. Rectum is distended with stool, measuring up to 8 cm in diameter. Mild rectal wall thickening. Correlate with clinical symptoms of fecal impaction. D/ : / 10/13/2018 11:43:29 Giana Lagos MD / savanna Interpreting Provider: Giana Lagos MD Consult Discharge Plan - Plan Referrals: Cony Cornelius DO [Primary Care Provider] - Prescriptions: Tamsulosin [Flomax] 0.4 mg PO DAILY #30 capsule Cefdinir [Omnicef] 300 mg PO BID #16 capsule Finasteride [Proscar] 5 mg PO DAILY #30 tablet - Attending Attestation I examined this patient and my medical decision-making was reviewed with the Resident Physician Dr Cagle. I agree with the documented findings, disposition and treatment plan as described except to the extent set forth below. Mr Saucedo is admitted with encephalopathy, UTI and now multifocal pna awake, fatigued appearing but interactive, even joking with staff at bedside. denies cough, sob. diffuse joint pain. no nausea, emesis gen- awake appears stated age cv- reg rate and rhythm, normal s1,s2, no murmurs appreciated, no le edema lungs- ctabl, no wheezing, rhonchi or crackles normal resp effort abd- soft, no tenderness, non distended skin- warm, dry, no rash, no ecchymosis neuro- awake, follows commands, CN grossly intact Multifocal pna, organism unknown, MRSA screen + - cont vanc + zosyn + azithro Complicated UTI Enterococcus faecalis- currently vanc + zosyn as above to complete course Bladder obstruction- appreciate urology recs, maintain buck cath, outpt cysto in 4 weeks with voiding trial at that time Encephalopathy, suspected related to infectious process noted above-improving, abx as above and cont monitoring for further improvement Stable normocytic anemia without overt bleeding, no prior for comparison to know if acute or chronic though on iron at home- cont to monitor, cont iron further diagnoses and plan as noted by resident <Jared Cagle - Last Filed: 10/15/18 16:55> Hospitalist Progress Note - Encounter Date of Encounter: 10/15/18 Time of Encounter: 07:33 - Subjective Interval History: Patient was seen and examined at bedside this morning. He is looking much better today. He is much more responsive, and is able to answer complete questions. Mucous membranes do not appear as dry as yesterday. He is able to cooperate with exam. He complains of some mild hip pain, but otherwise has no complaints. Denies having any cough, shortness of breath, or increased sputum production. States that he slept well last night. Patients Lopressor has been increased to 25 by mouth twice a day. We are continuing to treat for pneumonia and UTI. - Exam Vitals: Temp Pulse Resp BP Pulse Ox 98.0 F 69 18 147/68 99 10/15/18 11:51 10/15/18 11:51 10/15/18 11:51 10/15/18 11:51 10/15/18 11:51 Exam: General: Alert and oriented 3, no acute distress Head: atraumatic, normocephalic; mucous membranes dry Eye: PERRL, EOMI Neck: Supple, trachea midline; No lymphadenopathy Respiratory: Diminished breath sounds bilaterally. No accessory muscle use, wheezes, rales, or rhonchi Cardiovascular: RRR, +S1/+S2; no murmurs, rubs, gallops Abdomen: Soft Extremities: warm, radial pulses palpable and symmetrical; Mild pain in the right hip Psychiatric: Normal affect and mood Skin: Dry, intact - Assessment and Plan (1) Multifocal pneumonia Current Visit: Yes Status: Acute Assessment and Plan: - As demonstrated on CT scan, 10/13/18: - Bilateral lower lobe ground-glass infiltrate, worse on L than R, is consistent with multifocal PNA - Bilateral upper lobe tree-in-bud nodular opacities are consistent with acute infectious or inflammatory bronchiolitis - Causative organism is unknown at this time - Diminished breath sounds bilaterally on physical exam; ROS is unobtainable due to patients mental status - MRSA screen was positive Plan: - Continue vancomycin, Zosyn, and Zithromax - Repeat a.m. labs (2) Complicated UTI (urinary tract infection) Current Visit: Yes Status: Acute Assessment and Plan: - Initially presented with altered mental status, leukocytosis at 23.8, and urinalysis suggestive of UTI - Urine culture is ordered and is currently pending - CT scan of the abdomen and pelvis demonstrated bilateral hydronephrosis and moderately distended bladder; possible bladder outlet obstruction - Was given 1 dose of Zosyn at [facility]; was started on Rocephin after transferred to [facility] - Urine culture has grown Enterococcus faecalis, pansensitive - Initially, rocephin was discontinued and switched to Ampicillin; was then switched again after CT scan of the chest demonstrated multifocal pneumonia; MRSA screen today was positive Plan: - Continue vancomycin, Zosyn, and azithromycin (3) Bladder outlet obstruction Current Visit: Yes Status: Acute Assessment and Plan: - CT scan of the abdomen and pelvis demonstrated moderate bilateral hydronep hrosis and hydroureter and distended bladder suggestive of bladder outlet obstruction - Attempted to place Buck catheter when admitted; was unsuccessful - Urology was consulted; difficult Buck was placed at bedside with 16-[place] coude - Per urology recommendations: Leave Buck indwelling, maximize BPH medications with tamsulosin and finasteride; outpatient cystoscopy with trial of void in 4 weeks (4) Acute encephalopathy Current Visit: Yes Status: Acute Assessment and Plan: - Likely secondary to urinary tract infection and multifocal pneumonia - Plan as above (5) Type 2 diabetes mellitus Current Visit: Yes Status: Acute Assessment and Plan: - SSI (6) Coronary artery disease Current Visit: Yes Status: Acute Assessment and Plan: - Home ASA and Plavix - Time Spent with Patient Total time spent is greater than 50% in coordination of care (as documented) at patient's floor/unit and/or counseling patient: Internal Medicine: Result - Labs CBC & Chem 7: 10/15/18 02:17 10/15/18 02:17 Labs: Short CBC 10/15/18 Range/Units 02:17 WBC 15.2 H (4.3-11.1) K/mcL Hgb 10.1 L (12.9-16.9) g/dL Hct 31.8 L (37.5-50.1) % Plt Count 315 (140-400) K/mcL Neutrophils # 10.6 H (1.6-8.9) K/mcL BMP 10/15/18 02:17 Sodium 143 Potassium 3.7 Chloride 108 H Carbon Dioxide 29 BUN 23 Creatinine 1.01 Glucose 180 H Calcium 9.7 - ABG Interpretation ABG results: ABG ABG pH 7.50 pH Units (7.32-7.45) H 10/13/18 10:59 ABG pCO2 40 mmHg (35-45) 10/13/18 10:59 ABG pO2 76 mmHg (85-104) L 10/13/18 10:59 ABG O2 Saturation 96 % (95-98) 10/13/18 10:59 PT/INR, D-dimer PT 12.3 Seconds (9.4-12.1) H 10/08/18 22:20 - Impressions Impressions Abdomen/Pelvis CT 10/13/18 09:53 IMPRESSION: Motion degraded study. Bilateral lower lobe ground-glass infiltrate, worse on the left than the right, is consistent with multifocal pneumonia. Bilateral upper lobe tree-in-bud nodular opacities are consistent with acute infectious or inflammatory bronchiolitis. Previously noted small bilateral pulmonary nodules have not significantly changed. Given approximately 1 year of stability, nodules are likely benign and do not require dedicated imaging follow-up. Mild bilateral hydronephrosis. No radiopaque renal calculi. Mild, diffuse urinary bladder wall thickening. Findings may be related to cystitis and/or lines tender is. Consider correlation with urinalysis. Rectum is distended with stool, measuring up to 8 cm in diameter. Mild rectal wall thickening. Correlate with clinical symptoms of fecal impaction. D/ / 10/13/2018 11:43:29 Giana Lagos MD / savanna Interpreting Provider: Giana Lagos MD Chest CT 10/13/18 09:53 IMPRESSION: Motion degraded study. Bilateral lower lobe ground-glass infiltrate, worse on the left than the right, is consistent with multifocal pneumonia. Bilateral upper lobe tree-in-bud nodular opacities are consistent with acute infectious or inflammatory bronchiolitis. Previously noted small bilateral pulmonary nodules have not significantly changed. Given approximately 1 year of stability, nodules are likely benign and do not require dedicated imaging follow-up. Mild bilateral hydronephrosis. No radiopaque renal calculi. Mild, diffuse urinary bladder wall thickening. Findings may be related to cystitis and/or lines tender is. Consider correlation with urinalysis. Rectum is distended with stool, measuring up to 8 cm in diameter. Mild rectal wall thickening. Correlate with clinical symptoms of fecal impaction. 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 <Jared Cagle - Last Filed: 10/15/18 16:55> (5) Type 2 diabetes mellitus Qualifiers: Proliferative retinopathy type: unspecified Diabetes mellitus macular edema: macular edema presence unspecified Laterality: unspecified laterality Qualified Code(s): 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
[2018-10-15] MEDS: Insulin DETEMIR 100 UNIT/ML X5UNITS SQ SCH (21:07)
[2018-10-15] MEDS: Aspirin Enteric Coated 81 MG Tablet PO SCH (21:11)
[2018-10-16] MEDS: Piperacillin/Tazobactam 3.375 GM in 0.9 % Sodium Chloride Mini Bag 100 ML IVPB SCH ×2 (00:07→09:05)
[2018-10-16] MEDS: *HR* Heparin 5,000 UNIT/ML VIAL SQ SCH ×2 (00:08→08:57)
[2018-10-16 05:43] LABS: Basophils # 0.1 K/mcL (0.0-0.2); Basophils % 0.5 %; Eosinophils # 0.9 K/mcL (0.0-0.6); Eosinophils % 5.2 %; Hematocrit 33.3 % (37.5-50.1); Hemoglobin 10.2 g/dL (12.9-16.9); Immature Granulocytes % 0.6 % (0-4); Lymphocytes % 11.4 %; Mean Corpuscular HGB Conc 30.6 g/dL (31.6-35.5); Mean Corpuscular Hemoglobin 29.5 pg (28.0-33.3); Mean Corpuscular Volume 96.2 fL (83.0-100.0); Mean Platelet Volume 11.2 fL (9.4-12.4); Monocytes # 1.1 K/mcL (0.0-1.3); Monocytes % 6.4 %; Neutrophils # 13.4 K/mcL (1.6-8.9); Platelet Count 314 K/mcL (140-400); Red Blood Count 3.46 M/mcL (4.19-5.50); Red Cell Distribution Width 13.5 % (11.5-14.5); Segmented Neutrophils % 75.9 %
[2018-10-16 05:56] LABS: BUN/Creatinine Ratio 20 (6-26); Blood Urea Nitrogen 20 mg/dL (8-23); Carbon Dioxide 25 mEq/L (23-29); Chloride 109 mEq/L (98-107); Glucose 83 mg/dL (70-105); Osmolality,Calculated 300 (280-300); Potassium 3.5 mEq/L (3.5-5.1); Sodium 144 mEq/L (136-145); eGFR For Non-African Americans > 60 (> 60)
--- NOTE | 2018-10-16 07:56 | Internal Med Progress Note ---
Hospitalist Progress Note - Encounter Date of Encounter: 10/16/18 - Exam Vitals: Temp Pulse Resp BP Pulse Ox 98.4 F 87 19 188/76 98 10/16/18 04:34 10/16/18 04:34 10/16/18 04:34 10/16/18 04:34 10/16/18 04:34 - Assessment and Plan (1) Multifocal pneumonia Current Visit: Yes Status: Acute (2) Complicated UTI (urinary tract infection) Current Visit: Yes Status: Acute (3) Bladder outlet obstruction Current Visit: Yes Status: Acute (4) Acute encephalopathy Current Visit: Yes Status: Acute (5) Type 2 diabetes mellitus Current Visit: Yes Status: Acute (6) Coronary artery disease Current Visit: Yes Status: Acute - Time Spent with Patient Total time spent is greater than 50% in coordination of care (as documented) at patient's floor/unit and/or counseling patient: Internal Medicine: Result - Labs CBC & Chem 7: 10/16/18 05:10 10/16/18 05:10 Labs: Short CBC 10/16/18 Range/Units 05:10 WBC 17.6 H (4.3-11.1) K/mcL Hgb 10.2 L (12.9-16.9) g/dL Hct 33.3 L (37.5-50.1) % Plt Count 314 (140-400) K/mcL Neutrophils # 13.4 H (1.6-8.9) K/mcL BMP 10/16/18 05:10 Sodium 144 Potassium 3.5 Chloride 109 H Carbon Dioxide 25 BUN 20 Creatinine 1.00 Glucose 83 Calcium 10.0 - ABG Interpretation ABG results: ABG ABG pH 7.50 pH Units (7.32-7.45) H 10/13/18 10:59 ABG pCO2 40 mmHg (35-45) 10/13/18 10:59 ABG pO2 76 mmHg (85-104) L 10/13/18 10:59 ABG O2 Saturation 96 % (95-98) 10/13/18 10:59 PT/INR, D-dimer PT 12.3 Seconds (9.4-12.1) H 10/08/18 22:20 - Impressions Impressions Abdomen/Pelvis CT 10/13/18 09:53 IMPRESSION: Motion degraded study. Bilateral lower lobe ground-glass infiltrate, worse on the left than the right, is consistent with multifocal pneumonia. Bilateral upper lobe tree-in-bud nodular opacities are consistent with acute infectious or inflammatory bronchiolitis. Previously noted small bilateral pulmonary nodules have not significantly changed. Given approximately 1 year of stability, nodules are likely benign and do not require dedicated imaging follow-up. Mild bilateral hydronephrosis. No radiopaque renal calculi. Mild, diffuse urinary bladder wall thickening. Findings may be related to cystitis and/or co pilot is. Consider correlation with urinalysis. Rectum is distended with stool, measuring up to 8 cm in diameter. Mild rectal wall thickening. Correlate with clinical symptoms of fecal impaction. D/ / 10/13/2018 11:43:29 Giana Lagos MD / savanna Interpreting Provider: Giana Lagos MD Chest CT 10/13/18 09:53 IMPRESSION: Motion degraded study. Bilateral lower lobe ground-glass infiltrate, worse on the left than the right, is consistent with multifocal pneumonia. Bilateral upper lobe tree-in-bud nodular opacities are consistent with acute infectious or inflammatory bronchiolitis. Previously noted small bilateral pulmonary nodules have not significantly changed. Given approximately 1 year of stability, nodules are likely benign and do not require dedicated imaging follow-up. Mild bilateral hydronephrosis. No radiopaque renal calculi. Mild, diffuse urinary bladder wall thickening. Findings may be related to cystitis and/or co pilot is. Consider correlation with urinalysis. Rectum is distended with stool, measuring up to 8 cm in diameter. Mild rectal wall thickening. Correlate with clinical symptoms of fecal impaction. D/ / 10/13/2018 11:43:29 Giana Lagos MD / savanna Interpreting Provider: Giana Lagos MD Consult Discharge Plan - Plan Referrals: Cony Cornelius DO [Primary Care Provider] - Prescriptions: Tamsulosin [Flomax] 0.4 mg PO DAILY #30 capsule Cefdinir [Omnicef] 300 mg PO BID #16 capsule Finasteride [Proscar] 5 mg PO DAILY #30 tablet (5) Type 2 diabetes mellitus Qualifiers: Proliferative retinopathy type: unspecified Diabetes mellitus macular edema: macular edema presence unspecified Laterality: unspecified laterality Qualified Code(s): E11.3599 - Type 2 diabetes mellitus with proliferative diabet ic retinopathy without macular edema, unspecified eye; Z79.4 - [employer] (current) use of insulin (6) Coronary artery disease Qualifiers: Associated angina: angina presence unspecified Qualified Code(s): I25.10 - Atherosclerotic heart disease of [place] coronary artery without angina pectoris
[2018-10-16] MEDS: Finasteride 5 MG TABLET PO SCH (08:57)
[2018-10-16] MEDS: Ascorbic Acid 500 MG TABLET PO SCH (09:05)
[2018-10-16] MEDS: Insulin LISPRO 300 UNITS/3 ML VIAL SQ SCH ×2 (09:16→11:37)
[2018-10-16 11:09] LABS: Mycoplasma pneumoniae IgG 0.71 U/L (<=0.09)
[2018-10-16 12:10] VITALS: BP 110/70
[2018-10-16] MEDS: Azithromycin 500 MG in D5% in Water 250 ML IVPB SCH (13:57)
--- NOTE | 2018-10-16 15:00 | Discharge Summary ---
<Jared Cagle - Last Filed: 10/16/18 15:18> - NOTES TO OUTPATIENT PROVIDER Notes to Outpatient Provider: Patient will need a repeat CBC in 3-5 days. He will also need to complete 6 more days of antibiotics for a total course of 10 days. He will be sent on doxycycline 100 mg twice a day and Augmentin 875 mg t wice a day. He is also being sent home on probiotics. He is to follow-up in the outpatient setting with urology for outpatient cystoscopy with trial of void. Orders not resulted at time of discharge: Pending orders 10/13/18 10:20 Culture,Blood [BC] Stat 10/17/18 02:00 Vancomycin,Trough Timed Date of Encounter: 10/16/18 Time of Encounter: 08:50 - Discharge Diagnosis (1) Multifocal pneumonia Priority: Primary Status: Acute (2) Complicated UTI (urinary tract infection) Priority: Secondary Status: Acute (3) Bladder outlet obstruction Priority: Secondary Status: Acute (4) Acute encephalopathy Priority: Secondary Status: Acute (5) Type 2 diabetes mellitus Priority: Secondary Status: Acute Qualifiers: Proliferative retinopathy type: unspecified Diabetes mellitus macular edema: macular edema presence unspecified Laterality: unspecified laterality Qualified Code(s): E11.3599 - Type 2 diabetes mellitus with proliferative diabetic retinopathy without macular edema, unspecified eye; Z79.4 - intermission coordinator (current) use of insulin (6) Coronary artery disease Priority: Secondary Status: Acute Qualifiers: Associated angina: angina presence unspecified Qualified Code(s): I25.10 - Atherosclerotic heart disease of [place] coronary artery without angina pectoris Hospital course: Mr. Saucedo is a 68 year old male with a PMH of diabetes, HTN, GERD, previous TIA, CAD status post [place], and peripheral vascular disease who presented to [facility] ED with the chief complaint of weakness. Initial workup at [facility] demonstrated leukocytosis at 21 and urinalysis demonstrated a UTI. He also had an elevated blood glucose of 300. He had no evidence of DKA or HHS. CT scan of the head was unremarkable. CT scan of the abdomen and pelvis demonstrated moderate bilateral hydronephrosis and hydroureter, with a moderately distended bladder. There was a concern for possible bladder outlet obstruction. At [facility], he was given a one-time dose of Zosyn and then was transferred to [facility] for further management. He was started on IV Rocephin for his UTI. On his first day in the hospital, patients mental status had improved. He was alert and oriented 3 on exam, but reported that he had not urinated that morning. A bladder scan was performed, which demonstrated 750 mL of urine in his bladder. A Bukc catheter placement was attempted multiple times; after multiple unsuccessful attempts, urology was consulted. Difficult Buck was placed at bedside with 16-Swedish coude. Urology further recommended maximizing BPH meds with tamsulosin and finasteride. Patients urine culture grew back enterococcus faecalis that was pansensitive. He was initially switched from Rocephin to ampicillin. However, on 10/13, patient became altered and very drowsy. His white count had increased. A CT scan of the chest was ordered, which was consistent with multifocal pneumonia. Antibiotics were switched to vancomycin, Zosyn, and azithromycin. During this time, patients blood pressure was noted to be elevated. His metoprolol was increased from 12.5-25 mg. Patient was seen and examined on date of discharge. He states that he is feeling well. He is alert and oriented 3, and has no complaints today. Buck catheter is in place. Per the recommendations of urology, patient is to follow- up in the outpatient setting with urology for outpatient cystoscopy with trial of void. His antibiotics will be switched to doxycycline and Augmentin. He will continue these for a total of 6 more days for a total 10 day course of antibiotics for his pneumonia. He will be discharged on doxycycline 100 mg twice a day and Augmentin 875 mg by mouth twice a day. He is also being sent on probiotics. He will need a repeat CBC in 3-5 days. He is being sent to [facility]. - Time Spent with Patient Total time spent providing and/or coordinating discharge services: - Discharge Medications Prescriptions: New Tamsulosin [Flomax] 0.4 mg PO DAILY #30 capsule Finasteride [Proscar] 5 mg PO DAILY #30 tablet Amoxicillin/Clavulanate [Augmentin] 875 mg PO BIDWM #12 tablet Doxycycline 100 mg PO BID #12 capsule Lactobacillus [Culturelle] 2 each PO DAILY #30 cap.sprink Metoprolol [Lopressor] 25 mg PO #60 tablet HYDROcodone/Acet 5/325 mg [[place] 5-325 mg] 1 tab PO Q6H PRN 30 Days #120 tab PRN Reason: Pain Continued GuaiFENesin Liq [Robitussin Liq] 200 mg PO Q4H PRN PRN Reason: Cough HYDROcodone/Acet 5/325 mg [[place] 5-325 mg] 1 tab PO Q6H PRN PRN Reason: Pain cloNIDine HCl [CloNIDine HCl] 0.1 mg PO DAILY PRN PRN Reason: BP >140/90 Insulin ASPART [NovoLOG] 0 - 8 ml SQ TIDAC MDD SLIDING SCALE Pregabalin [Lyrica] 150 mg PO 0830,1630,1999 Doxycycline Hyclate 100 mg PO 0830,1630 Sertraline [Zoloft] 50 mg PO 1630 Zinc Acetate [Galzin] 50 mg PO 1630 Ascorbic Acid [Vitamin C with Leana Hips] 1,000 mg PO 0830 Polyethylene Glycol 3350 [MiraLAX] 17 gm PO 0830 Multivitamin with Minerals [One-A-Day Maximum Formula] 1 tab PO 0830 Glimepiride [Amaryl] 2 mg PO 0830 Ferrous Sulfate [Iron] 325 mg PO 1630 Duloxetine HCl [Cymbalta] 60 mg PO 0830 Clopidogrel [Plavix] 75 mg PO 0830 Aspirin [Lo-Dose Aspirin EC] 81 mg PO 1999 Tizanidine HCl 2 mg PO Q12H PRN PRN Reason: Muscle Spasm Discontinued Metoprolol [Lopressor] 12.5 mg PO 0830,1999 Trazodone HCl 25 mg PO HS Home Medications: Ascorbic Acid [Vitamin C with Leana Hips] 1,000 mg PO 0830 10/09/18 [History] Aspirin [Lo-Dose Aspirin EC] 81 mg PO 199910/09/18 [History] Clopidogrel [Plavix] 75 mg PO 0830 10/09/18 [History] Doxycycline Hyclate 100 mg PO 0830,1630 10/09/18 [History] Duloxetine HCl [Cymbalta] 60 mg PO 0830 10/09/18 [History] Ferrous Sulfate [Iron] 325 mg PO 1630 10/09/18 [History] Glimepiride [Amaryl] 2 mg PO 0830 10/09/18 [History] GuaiFENesin Liq [Robitussin Liq] 200 mg PO Q4H PRN 10/09/18 [History] HYDROcodone/Acet 5/325 mg [[place] 5-325 mg] 1 tab PO Q6H PRN 10/09/18 [History] Insulin ASPART [NovoLOG] 0 - 8 ml SQ TIDAC MDD SLIDING SCALE 10/09/18 [History] Multivitamin with Minerals [One-A-Day Maximum Formula] 1 tab PO 0830 10/09/18 [History] Polyethylene Glycol 3350 [MiraLAX] 17 gm PO 0830 10/09/18 [History] Pregabalin [Lyrica] 150 mg PO 0830,163,199910/09/18 [History] Sertraline [Zoloft] 50 mg PO 162910/09/18 [History] Tizanidine HCl 2 mg PO Q12H PRN 10/09/18 [History] Zinc Acetate [Galzin] 50 mg PO 162910/09/18 [History] cloNIDine HCl [CloNIDine HCl] 0.1 mg PO DAILY PRN 10/09/18 [History] Finasteride [Proscar] 5 mg PO DAILY #30 tablet 10/10/18 [Rx] Tamsulosin [Flomax] 0.4 mg PO DAILY #30 capsule 10/10/18 [Rx] Amoxicillin/Clavulanate [Augmentin] 875 mg PO BIDWM #12 tablet 10/16/18 [Rx] Doxycycline 100 mg PO BID #12 capsule 10/16/18 [Rx] HYDROcodone/Acet 5/325 mg [[place] 5-325 mg] 1 tab PO Q6H PRN 30 Days #120 tab 10/16/18 [Rx] Lactobacillus [Culturelle] 2 each PO DAILY #30 cap.sprink 10/16/18 [Rx] Metoprolol [Lopressor] 25 mg PO #60 tablet 10/16/18 [Rx] Allergies/Adverse Reactions: Allergy/AdvReac Type Severity Reaction Status Date / Time hydrochlorothiazide Allergy See Verified 10/09/18 12:04 Comments oxycodone [From Percocet] AdvReac Unknown Verified 10/09/18 00:41 Date of admission: 10/08/18 22:37 Primary care physician: Cony Cornelius DO Consults: 10/09/18 11:56 Consult to Urology [CONS] Routine Consulting Provider: Urology Gema Reason for Consult: buck placement Time Notified: 11:57 Call Completed: Yes Consult to Wound Care [CONS] Routine Reason for Consult: wound on leg/feet Time Notified: 11:57 Call Completed: Yes 10/09/18 20:58 Consult to Popcorn Candy Maker [CONS] Routine Reason for SW Consult: Discharge planning. Family wants patient to go to a different ECF/rehab. 10/14/18 14:19 Consult to Nurse Navigator [CONS] Routine Comment: pn Discharging clinician: Jared Cagle Anticipated date of discharge: 10/16/18 - Constitutional Vitals: Temp Pulse Resp BP Pulse Ox 98.6 F 65 18 110/70 97 10/16/18 12:02 10/16/18 12:02 10/16/18 12:02 10/16/18 12:02 10/16/18 12:02 Exam: General: Alert and oriented 3, no acute distress Head: atraumatic, normocephalic; mucous membranes dry Eye: PERRL, EOMI Neck: Supple, trachea midline; No lymphadenopathy Respiratory: Diminished breath sounds bilaterally. No accessory muscle use, wheezes, rales, or rhonchi Cardiovascular: RRR, +S1/+S2; no murmurs, rubs, gallops Abdomen: Soft Extremities: warm, radial pulses palpable and symmetrical; Mild pain in the right hip Psychiatric: Normal affect and mood Skin: Dry, intact - Patient Status Disposition: Transfer SNF Condition: Fair Overall status at discharge: patient is progressing back to baseline - Discharge Instructions Follow Up With: Cony Cornelius, [Primary Care Provider] - Ki Meza [Partnered Physician] - - Diet and Activity Activity: increase activity as tolerated Diet: advance to your usual diet <Jaelyn Hahn - Last Filed: 10/16/18 16:43> Orders not resulted at time of discharge: Pending orders 10/13/18 10:20 Culture,Blood [BC] Stat 10/17/18 02:00 Vancomycin,Trough Timed Date of Encounter: 10/16/18 - Discharge Diagnosis (1) Acute encephalopathy Status: Acute (2) Complicated UTI (urinary tract infection) Status: Acute (3) Bilateral hydronephrosis Status: Acute (4) DVT prophylaxis Status: Acute (5) Type 2 diabetes mellitus Status: Acute Qualifiers: Proliferative retinopathy type: unspecified Diabetes mellitus macular edema: macular edema presence unspecified Laterality: unspecified laterality Qualified Code(s): E11.3599 - 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 Saucedo is a 68 year old male - Time Spent with Patient Total time spent providing and/or coordinating discharge services: Time spent: Greater than 30 minutes (45 min) Date of admission: 10/08/18 22:37 Primary care physician: Cony Cornelius DO Consults: 10/09/18 11:56 Consult to Urology [CONS] Routine Consulting Provider: Urology Gema Reason for Consult: buck placement Time Notified: 11:57 Call Completed: Yes Consult to Wound Care [CONS] Routine Reason for Consult: wound on leg/feet Time Notified: 11:57 Call Completed: Yes 10/09/18 20:58 Consult to Popcorn Candy Maker [CONS] Routine Reason for SW Consult: Discharge planning. Family wants patient to go to a different ECF/rehab. 10/14/18 14:19 Consult to Nurse Navigator [CONS] Routine Comment: pn - Constitutional Vitals: Temp Pulse Resp BP Pulse Ox 98.6 F 65 18 110/70 97 10/16/18 12:02 10/16/18 12:02 10/16/18 12:02 10/16/18 12:02 10/16/18 12:02 - Diet and Activity Activity: as per physical therapy, increase activity as tolerated Diet: advance to your usual diet, diabetic diet, low salt diet, other (soft diet, chopped meat,ensure enlive TID) - Attending Attestation I examined this patient and my medical decision-making was reviewed with the Resident Physician Dr Cagle. I agree with the documented findings, disposition and treatment plan as described except to the extent set forth below. Mr Saucedo is admitted with encephalopathy, UTI with plan for dc to snf delayed due to then recurrence of encephalopathy with dx multifocal pna. he now has returned to baseline mental status. He remains afebrile, clinically greatly improved over last 36 hrs despite mild uptrend in wbc. He is medically stable for dc to snf and this has been discussed with his daughter Eli who is comfortable with plan. awake, no family present, smiling and pleasant. He denies cough, wheezing or sob. no fevers or chills. He continues to have bl leg pain which daughter confirmed is chronic from neuropathy. I contacted his daughter eli and discussed current status, plan and all discharge questions answered. I spoke with pahallanacist and reviewed abx for oral treatment. Aware mrsa swab + those this does not have good + predictive value however, we will cover empirically for mrsa with doxy on dc. SW updated to dispo gen- awake appears stated age cv- reg rate and rhythm, normal s1,s2, no murmurs appreciated, no le edema lungs- ctabl, no wheezing, rhonchi or crackles normal resp effort on room air abd- soft, no tenderness, non distended, no rigidity, + bs neuro- awake, follows commands, CN grossly intact Multifocal pna, organism unknown, MRSA screen + - as d/w pharmacy will dc on doxy + augmentin to complete 10 d course abx, stable on room air, cbc outpt in 3-5 days to re assess leukocytosis as right now remains afebrile and clinically greatly improved despite elevation, bl cxs 10/13 ngtd on dc Complicated UTI Enterococcus faecalis- sensitivities reviewed and near course completion, abx as above Bladder obstruction- appreciate urology recs, maintain buck cath, outpt cysto in 4 weeks with voiding trial at that time, fu with Dr Meza Encephalopathy, suspected related to infectious process noted above-resolved abx as above Stable normocytic anemia without overt bleeding, no prior for comparison to know if acute or chronic though on iron at home- cont iron DM- cont home med regimen on dc back to snf, daughter prefers that he be continued on lyrica for neuropathy at this time further diagnoses and plan as noted by resident time spent on dc 45 min
--- NOTE | 2018-10-16 15:22 | Physician Discharge Referral ---
<Jared Cagle - Last Filed: 10/16/18 15:21> ExtendedCare Referral Info Transfer To: [facility] Provider in Charge after Transfer: PCP Institutional Level of Care: Skilled - Diagnosis (1) Multifocal pneumonia Priority: Primary Status: Acute (2) Complicated UTI (urinary tract infection) Priority: Secondary Status: Acute (3) Bladder outlet obstruction Priority: Secondary Status: Acute (4) Acute encephalopathy Priority: Secondary Status: Acute (5) Type 2 diabetes mellitus Status: Acute (6) Coronary artery disease Priority: Secondary Status: Acute - Transfer Medications Prescriptions: Amoxicillin/Clavulanate [Augmentin] 875 mg PO BIDWM #12 tablet Lactobacillus [Culturelle] 2 each PO DAILY #30 cap.sprink Doxycycline 100 mg PO BID #12 capsule Tamsulosin [Flomax] 0.4 mg PO DAILY #30 capsule Metoprolol [Lopressor] 25 mg PO #60 tablet HYDROcodone/Acet 5/325 mg [[place] 5-325 mg] 1 tab PO Q6H PRN 30 Days #120 tab PRN Reason: Pain Finasteride [Proscar] 5 mg PO DAILY #30 tablet Home Medications: Ascorbic Acid [Vitamin C with Leana Hips] 1,000 mg PO 82910/09/18 [History] Aspirin [Lo-Dose Aspirin EC] 81 mg PO 199910/09/18 [History] Clopidogrel [Plavix] 75 mg PO 82910/09/18 [History] Doxycycline Hyclate 100 mg PO 829,162910/09/18 [History] Duloxetine HCl [Cymbalta] 60 mg PO 82910/09/18 [History] Ferrous Sulfate [Iron] 325 mg PO 162910/09/18 [History] Glimepiride [Amaryl] 2 mg PO 82910/09/18 [History] GuaiFENesin Liq [Robitussin Liq] 200 mg PO Q4H PRN 10/09/18 [History] HYDROcodone/Acet 5/325 mg [[place] 5-325 mg] 1 tab PO Q6H PRN 10/09/18 [History] Insulin ASPART [NovoLOG] 0 - 8 ml SQ TIDAC MDD SLIDING SCALE 10/09/18 [History] Multivitamin with Minerals [One-A-Day Maximum Formula] [place] 8[address]/09/18 [History] Polyethylene Glycol 3350 [MiraLAX] 17 gm PO 0830 10/09/18 [History] Pregabalin [Lyrica] 150 mg PO 0830,163,199910/09/18 [History] Sertraline [Zoloft] 50 mg PO 162910/09/18 [History] Tizanidine HCl 2 mg PO Q12H PRN 10/09/18 [History] Zinc Acetate [Galzin] 50 mg PO 162910/09/18 [History] cloNIDine HCl [CloNIDine HCl] 0.1 mg PO DAILY PRN 10/09/18 [History] Finasteride [Proscar] 5 mg PO DAILY #30 tablet 10/10/18 [Rx] Tamsulosin [Flomax] 0.4 mg PO DAILY #30 capsule 10/10/18 [Rx] Amoxicillin/Clavulanate [Augmentin] 875 mg PO BIDWM #12 tablet 10/16/18 [Rx] Doxycycline 100 mg PO BID #12 capsule 10/16/18 [Rx] HYDROcodone/Acet 5/325 mg [[place] 5-325 mg] 1 tab PO Q6H PRN 30 Days #120 tab 10/16/18 [Rx] Lactobacillus [Culturelle] 2 each PO DAILY #30 cap.sprink 10/16/18 [Rx] Metoprolol [Lopressor] 25 mg PO #60 tablet 10/16/18 [Rx] Allergies/Adverse Reactions: Allergy/AdvReac Type Severity Reaction Status Date / Time hydrochlorothiazide Allergy See Verified 10/09/18 12:04 Comments oxycodone [From Percocet] AdvReac Unknown Verified 10/09/18 00:41 - Respiratory Orders Smoking Cessation: Smoking cessation has been advised. For more information, call the [place] Tobacco Quit Line at 7-485-EZLD-NOW. - Diet Orders Cardiac CERTIFICATION: I certify that the transfer of the above named patient to an Extended Care Facility is necessary for the continuing treatment of the diagnosis listed. The above information is true and accurate reflection of patient's current condition. Confidential - Redisclosure prohibited without a patient's written consent. <Jaelyn Hahn - Last Filed: 10/16/18 16:44> - Diagnosis (1) Acute encephalopathy Status: Acute (2) Complicated UTI (urinary tract infection) Status: Acute (3) Bilateral hydronephrosis Status: Acute (4) DVT prophylaxis Status: Acute (5) Type 2 diabetes mellitus Status: Acute (6) Coronary artery disease Status: Acute - Respiratory Orders None Smoking Cessation: Smoking cessation has been advised. For more information, call the [place] Tobacco Quit Line at 8-123-CLEH-NOW. - Lab Orders Lab Orders: CBC (3-5d) - Ancillary Orders May use pressure relief devices daily prn - Advance Directives Code Status: DNR-Arrest/Don't Intubate - Rehabiliation Orders Rehab Potential: Fair Rehab Orders: Sternal Precautions, ROM Exercises, Evaluation for Physical Therapy, Evaluation for Occupational Therapy, Evaluation for Speech Therapy - Treatments Skin tear care topically daily PRN per policy - Diet Orders Mechanical Soft (ensure enlive TID), No Concentrated Sweets, Cardiac CERTIFICATION: I certify that the transfer of the above named patient to an Extended Care Facility is necessary for the continuing treatment of the diagnosis listed. The above information is true and accurate reflection of patient's current condition. Confidential - Redisclosure prohibited without a patient's written consent.
[2018-10-16] MEDS ORDERED: Aminoglycoside Consult 1 EACH MC ONE (17:47)
[2018-10-17] MEDS ORDERED: Lactobacillus 1 EACH CAP.SPRINK PO SCH (09:00)
== END 2018-10-16 17:48 | DRG 689 ==
LOC: 2ANU → SUATTDRO 22:37
PROVIDERS: ADMIT Internal Medicine Nephrology; ATTEND Internal Medicine